=== PATIENT | female | born 2000 | race Caucasian/White ===

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

== ENCOUNTER 2024-09-01 10:44 | Outpatient (REF) | payer BC, MEDICAID, SELFPAY ==
[2024-09-01 11:27] LABS: MANUAL DIFF FLAG NO
[2024-09-01 11:32] LABS: Basophils Absolute Auto 0.1 X10*3/uL (0.0-0.2); Basophils Percent Auto 0.9 % (0-2); Eosinophils Absolute Auto 0.2 X10*3/uL (0.0-0.4); Eosinophils Percent Auto 2.9 % (0-4); Imm Gran Abs Auto 0.03 X10*3/uL (0.00-0.03); Imm Gran Pct Auto 0.5 % (0.0-0.4); Lymphocytes Absolute Auto 2.3 X10*3/uL (1.2-4.9); Lymphocytes Percent Auto 40.5 % (20-40); Mean Corpuscular HGB Conc 33.3 g/dl (31.0-35.0); Mean Corpuscular Hemoglobin 29.7 pg (27.0-33.0); Mean Platelet Volume 11.4 fL (9.4-12.3); Monocytes Absolute Auto 0.5 X10*3/uL (0.1-1.2); Monocytes Percent Auto 8.6 % (2-11); Neutrophils Absolute Auto 2.6 x10*3/uL (2.0-8.3); Neutrophils Percent Auto 46.6 % (45-73); Platelet Count 199 X10*3/uL (160-400); Red Blood Count 4.72 X10*6/uL (4.20-5.50); White Blood Count 5.6 X10*3/uL (4.8-10.8)
--- OUTSIDE RECORDS SUMMARY | 2024-09-01 12:16 | XMS_ITS | Encounter Summary ---
Author Organization [employer] Address [address] [facility] 7t [place] [address] Care Team Providers Care Chute Puller Name Role Phone Unavailable Primary Care Provider Unavailabl e Reason for Visit * Reason Comments Pre-visit Planning (Unable to reach for PVP screening, LVM) Encounter Details Date Type Department Care Team (Late st Contact Info) Description 08/20/2024 Patient Outreach [facility] [address] [place], [place] [phone] Cari Iqbal MD [address] [place], [place] [phone] Pre-visit Planning ((Unable to reach for PVP screening, LVM)) Social History Tobacco Use Types Packs/Day Years Used Date Smoking Tobacco: Never Assessed Comments Unknown Sex and Gender Information Value Date Recorded Sex Assigned at Female 09/01/2024 10:11 AM EST Legal Sex Female 4:13 PM EDT Gender Identity Female 09/01/2024 10:11 AM EST Sexual Orientation Choose not to disclose 2024 3:07 PM EST documented as of this encounter Progress Notes * Theresa Del Angel - 08/20/2024 1:11 PM EST CC Theresa placed successful outbound call to patient for pre-visit planning. Patient name and confirmed. Patient confirms appt date and time, and has transportation. Biggest concern for appointment at this time is none Patient advised to bring to appointment a photo id and insurance card. Appropriate screenings completed in anticipation of appointment. documented in this encounter Plan of Treatment Not on file documented as of this encounter Visit Diagnoses Not on filedocumented in this encounter
--- OUTSIDE RECORDS SUMMARY | 2024-09-01 12:16 | XMS_ITS | Clinical Summary ---
Author Organization [employer] Address [address] [facility] 7t [place] [address] Care Team Providers Care Physical Aerodynamicist Name Role Phone Cari Iqbal MD Primary Care Provider [phone] Allergies No known active allergies Medications No known medications Active Problems No known active problems Encounters Date Type Department Care Team Description 09/01/2024 9:45 AM EST Office Visit [address] [address] Cari Iqbal MD Routine screening for STI (sexually transmitted infection) (Primary Dx); Crampy pain associated with menses 09/01/[address] [address] Cari Iqbal MD insurance 09/01/2024 Travel 08/28/[address] [address] Cari Iqbal MD telephone call 08/20/2024 Patient Outreach [address] [address] Cari Iqbal MD Pre-visit Planning ((Unable to reach for PVP screening, LVM)) 07/16/[address] [address] Cari Iqbal MD New Patient from Last 3 Months Social History Tobacco Use Types Packs/Day Years Used Date Smoking Tobacco: Never Passive Smoke Exposure: Never Smokeless Tobacco: Never Alcohol Use Standard Drinks/Week Comments Not Currently 0 (1 standard drink = 0.6 oz pur e alcohol) occasionally Housing Stability Answer Date Recorded What is your housing situation today? I have rickey vaughn 09/01/[address] you li ve. Do you have problems with any of the following? None of the above 09/01/2024 Food Insecurity Answer Date Recorded Within the past 12 months, y ou worried that your food would run out before you got money to buy more: Never True 09/01/2024 Within the past 12 months,th e food you bought just didn't last and you didn't have enough money to get more: Never True Transportation Answer Date Recorded In the past 12 months, has l ack of transportation kept you from medical appts, meetings, work or from getting things needed for daily living? No 09/01/2024 Utilities Answer Date Recorded In the past 12 months, has t he [employer], gas, oil or water company threatened to shut off services in your home? No 09/01/2024 Internet Access Answer Date Recorded Internet Access Q1 Yes 09/01/2024 Internet Access Q2 Not on file 09/01/2024 Comments Unknown Sex and Gender Information Value Date Recorded Sex Assigned at Female 09/01/2024 10:11 AM EST Legal Sex Female 4:13 PM EDT Gender Identity Female 09/01/2024 10:11 AM EST Sexual Orientation Choose not to disclose 2024 3:07 PM EST Last Filed Vital Signs Vital Sign Reading Time Taken Comments Blood Pressure 144/69 09/01/2024 9:52 AM EST Pulse 72 09/01/2024 9:52 AM EST Temperature 36.5 ??C (97.7 ??F) 09/01/2024 9:52 AM ES T Respiratory Rate 17 09/01/2024 9:52 AM EST Oxygen Saturation - - Inhaled Oxygen Concentration - - Weight 59.6 kg (131 lb 6.4 oz) 09/01/2024 9:52 A M EST Height 157.5 cm (5' 2 ) 09/01/2024 9:52 AM EST Body Mass Index 24.03 09/01/2024 9:52 AM EST Plan of Treatment Health Maintenance Due Date Last Done Comments Chlamydia and Gonorrhea Screening 2001 Depression Screening 2001 HIV Screening 2001 Alcohol/Substance Use Screening 2013 Family Planning (PISQ) 2016 Hepatitis C Screening 2019 Pap Smear 2022 DTaP/Tdap/Td Vaccines (7 - Td or Tdap) 09/25/2022 09/25/2012, 08/30/2005, 11/12/2002, Additional history exists COVID-19 Vaccine ( season) 2024 10/23/2021, 03/29/2021, 03/08/2021 Influenza Vaccine (#1) 2024 9, 07/10/2017, 12/14/2013, Additional history exists SDOH Screening 09/01/2025 09/01/2024 Tobacco Screening 09/01/2025 09/01/2024 Zoster Vaccines (1 of 2) 2051 RSV Patients and Patients Aged 60 years or older (1 - 1-dose 75+ series) 2076 Pneumococcal Vaccine: Pediatrics (0 to 5 Years) and At-Risk Patients (6 to 64 Years) Aged Out 2001, 2001, 2001 No longer eligible based on patient's age to complete this topic Hepatitis B Vaccines Completed 02/16/2002, 2001, 2001 HIB Vaccines Completed 08/13/2002, 01/2002, 2001, Additional history exists IPV Vaccines Completed 08/30/2005, 01/2002, 2001, Additional history exists HPV Vaccines Completed 12/14/2013, 11/11, 09/25/2012 Hepatitis A Vaccines Completed 01/13/2015, 12/15/19 14 Meningococcal Vaccine Completed 07/10/2017, 013 RSV under 20 months Aged Out No longe r eligible based on patient's age to complete this topic Rotavirus Vaccines Aged Out No longer eligible based on patient's age to complete this topic Procedures Procedure Name Priority Date/Time Associated Diagnosis Comments CBC WITH AUTO DIFFERENTIAL Routine 09/01/2024 10:46 AM EST Crampy pain associated with menses from Last 3 Months Results * (ABNORMAL) CBC auto differential (09/01/2024 10:46 AM EST) White Blood Count 5.6 4.8 - 10.8 X10*3/uL [facility] Red Blood Count 4.72 4.20 - 5.50 X10*6/uL [facility] Hemoglobin 14.0 12.0 - 16.0 g/dl [facility] Hematocrit 42.0 37.0 - 47.0 % [facility] Mean Corpuscular Volume 89.0 80.0 - 98.0 fL [facility] Mean Corpuscular Hemoglobin 29.7 27.0 - 33.0 pg [facility] Mean Corpuscular HGB Conc 33.3 31.0 - 35.0 g/dl [facility] Red Cell Distribution Width 12.0 11.0 - 16.0 % [facility] Platelet Count 199 160 - 400 X10*3/uL [facility] Mean Platelet Volume 11.4 9.4 - 12.3 fL [facility] Neutrophils Percent Auto 46.6 45 - 73 % [facility] Imm Gran Pct Auto 0.5(H) 0.0 - 0.4 % [facility] Lymphocytes Percent Auto 40.5(H) 20 - 40 % [facility] Monocytes Percent Auto 8.6 2 - 11 % [facility] Eosinophils Percent Auto 2.9 0 - 4 % [facility] Basophils Percent Auto 0.9 0 - 2 % [facility] NRBC Pct Auto 0.0 0.0 - 0.2 /100WBC [facility] Neutrophils Absolute Auto 2.6 2.0 - 8.3 x10*3/uL [facility] Imm Gran Abs Auto 0.03 0.00 - 0.03 X10*3/uL [facility] Lymphocytes Absolute Auto 2.3 1.2 - 4.9 X10*3/uL [facility] Monocytes Absolute Auto 0.5 0.1 - 1.2 X10*3/uL [facility] Eosinophils Absolute Auto 0.2 0.0 - 0.4 X10*3/uL [facility] Basophils Absolute Auto 0.1 0.0 - 0.2 X10*3/uL [facility] NRBC Abs Auto 0.000 0.0 - 0.012 X10*3/uL [facility] Blood Venous blood specimen / Unknown 09/01/2024 10:46 AM EST 09/01/2024 11:17 AM EST us Cari Iqbal MD LAB BLOOD ORDERABLES Final Res ult [facility] [address] [place] [address] [phone] from Last 3 Months Insurance [facility] Care Teams Physical Aerodynamicist Relationship Specialty Start Date End Date Cari Iqbal MD [address] [place] [phone] PCP - General Family Medicine 09/01/24
--- OUTSIDE RECORDS SUMMARY | 2024-09-01 12:16 | XMS_ITS | Encounter Summary ---
Author Organization [employer] Address [address] [facility] [address] 7[address] [place] [address] Care Team Providers Care Cigar Machine Feeder Name Role Phone Cari Iqbal MD Primary Care Provider [phone] Reason for Visit * Reason Comments [facility] - Office Visit New Patient Encounter Details Date Type Department Care Team (Late st Contact Info) Description 09/01/2024 9:45 AM EST Office Visit [facility] [address] [place], [place] [phone] Cari Iqbal MD [address] [place], [place] [phone] Routine screening for STI (sexually transmitted infection) (Primary Dx); Crampy pain associated with menses Social History Tobacco Use Types Packs/Day Years Used Date Smoking Tobacco: Never Passive Smoke Exposure: Never Smokeless Tobacco: Never Alcohol Use Standard Drinks/Week Comments Not Currently 0 (1 standard drink = 0.6 oz pur e alcohol) occasionally Housing Stability Answer Date Recorded What is your housing situation today? I have rickeyrocio vaughn 09/01/[address] you [...] the past 12 months, has t he electric, gas, oil or water company threatened to [...] PM EST documented as of this encounter Last Filed Vital Signs Vital Sign Reading [...] Mass Index 24.03 09/01/2024 9:52 AM EST documented in this encounter Plan of Treatment Scheduled Orders Name Type Priority Associated Diagnoses Orde r Schedule Chlamydia/N. Gonorrhoeae RNA, TMA, Urogenitial Microbiology Routine Routine screening for STI (sexually transmitted infection) Expected: 09/01/2024 (Approximate), Expires: 09/01/2025 HIV-1/2 Antigen and Antibodies, Fourth Generation, with Reflexes Lab Routine Routine screening for STI (sexually transmitted infection) Expected: 09/01/2024 (Approximate), Expires: 09/01/2025 Hepatitis C Antibody with Reflex to HCV, RNA, Quantitative, Real-Time PCR Lab Routine Routine screening for STI (sexually transmitted infection) Expected: 09/01/2024, Expires: 09/01/2025 RPR (Monitor) with Reflex to??Titer Lab Routine Routine screening for STI (sexually transmitted infection) Expected: 09/01/2024, Expires: 09/01/2025 Comprehensive Metabolic Panel Lab Routine Crampy pain associated with menses Expected: 09/01/2024 (Approximate), Expires: 09/01/2025 TSH W/Reflex to FT4 Lab Routine Crampy pain associated with menses Expected: 09/01/2024 (Approximate), Expires: 09/01/2025 documented as of this encounter Procedures Procedure Name Priority Date/Time Associated Diagnosis Comments CBC WITH AUTO DIFFERENTIAL Routine 09/01/2024 10:46 AM EST Crampy pain associated with menses documented in this encounter Results * (ABNORMAL) CBC auto differential (09/01/2024 10:46 AM EST) White Blood Count 5.6 4.8 - 10.8 X10*3/uL [facility] Red Blood Count 4.72 4.20 - 5.50 X10*6/uL [facility] Hemoglobin 14.0 12.0 - 16.0 g/dl [facility] Hematocrit 42.0 37.0 - 47.0 % [facility] Mean Corpuscular Volume 89.0 80.0 - 98.0 fL [facility] Mean Corpuscular Hemoglobin 29.7 27.0 - 33.0 pg [facility] Mean Corpuscular HGB Conc 33.3 31.0 - 35.0 g/dl [facility] Red Cell Distribution Width 12.0 11.0 - 16.0 % [facility] Platelet Count 199 160 - 400 X10*3/uL [facility] Mean Platelet Volume 11.4 9.4 - 12.3 fL [facility] Neutrophils Percent Auto 46.6 45 - 73 % [facility] Imm Gran Pct Auto 0.5(H) 0.0 - 0.4 % [facility] Lymphocytes Percent Auto 40.5(H) 20 - 40 % [facility] Monocytes Percent Auto 8.6 2 - 11 % [facility] Eosinophils Percent Auto 2.9 0 - 4 % [facility] Basophils Percent Auto 0.9 0 - 2 % [facility] NRBC Pct Auto 0.0 0.0 - 0.2 /100WBC [facility] Neutrophils Absolute Auto 2.6 2.0 - 8.3 x10*3/uL [facility] Imm Gran Abs Auto 0.03 0.00 - 0.03 X10*3/uL [facility] Lymphocytes Absolute Auto 2.3 1.2 - 4.9 X10*3/uL [facility] Monocytes Absolute Auto 0.5 0.1 - 1.2 X10*3/uL [facility] Eosinophils Absolute Auto 0.2 0.0 - 0.4 X10*3/uL [facility] Basophils Absolute Auto 0.1 0.0 - 0.2 X10*3/uL [facility] NRBC Abs Auto 0.000 0.0 - 0.012 X10*3/uL [facility] Blood Venous blood specimen / Unknown 09/01/2024 10:46 AM EST 09/01/2024 11:17 AM EST us Cari Iqbal MD LAB BLOOD ORDERABLES Final Res ult [facility] [address] [place] [address] [phone] documented in this encounter Visit Diagnoses Diagnosis Routine screening for STI (sexually transmitted infection)- Primary Screening examination for venereal disease Crampy pain associated with menses documented in this encounter Care Teams Cigar Machine Feeder Relationship Specialty Start Date End Date Cari Iqbal MD [address] [place] [phone] PCP - General Family Medicine 09/01/24 documented as of this encounter
--- OUTSIDE RECORDS SUMMARY | 2024-09-01 12:16 | XMS_ITS | Encounter Summary ---
Author Organization [employer] Address [address] [facility] 7t [place] [address] Care Team Providers Care Land Surveying Survey Worker Name Role Phone Unavailable Primary Care Provider Unavailabl e Reason for Visit * Reason Onset Date Comments telephone call 08/28/2024 Encounter Details Date Type Department Care Team (Late st Contact Info) Description 08/28/2024 Telephone [facility] [address] [place] [address] Cari Iqbal MD [address] [place] [address] telephone call Social History Tobacco Use Types Packs/Day Years Used Date Smoking Tobacco: Never Assessed Comments Unknown Sex and Gender Information Value Date Recorded Sex Assigned at Female 09/01/2024 10:11 AM EST Legal Sex Female 4:13 PM EDT Gender Identity Female 09/01/2024 10:11 AM EST Sexual Orientation Choose not to disclose 2024 3:07 PM EST documented as of this encounter Miscellaneous Notes * Telephone Encounter - Concha Mendoza - 08/28/2024 3:17 PM EST Fd called 08/28/2024 @ 3:19 pm to let him know that his insurance is assigned to PCP other. I left detailed voicemail telling him that he needs to call [employer] and change it to Dr. Iqbal in order for this to not be an issue when it comes to billing or referral purposes. documented in this encounter Plan of Treatment Not on file documented as of this encounter Visit Diagnoses Not on filedocumented in this encounter
--- OUTSIDE RECORDS SUMMARY | 2024-09-01 12:16 | XMS_ITS | Encounter Summary ---
Author Organization [employer] Address [address] [facility] [address] 7[address] [place] [address] Care Team Providers Care Caustic Mixer Name Role Phone Cari Iqbal MD Primary Care Provider [phone] Encounter Details Date Type Department Care Team (Latest Contact Info) Description 09/01/2024 Travel Social History Tobacco Use Types Packs/Day Years [...] t he electric, gas, oil or water [employer] threatened to shut off services in your [...] PM EST documented as of this encounter Plan of Treatment Not on file documented as of this encounter Visit Diagnoses Not on filedocumented in this encounter Care Teams Caustic Mixer Relationship Specialty Start Date End Date Cari Iqbal MD [address] [place] [address] PCP - General Family Medicine 09/01/24 documented as of this encounter
--- OUTSIDE RECORDS SUMMARY | 2024-09-01 12:16 | XMS_ITS | Encounter Summary ---
Author Organization [employer] Address [address] [facility] 7[address] [place] [address] Care Team Providers Care Equipment Maintenance Superintendent Name Role Phone Cari Iqbal MD Primary Care Provider [phone] Reason for Visit * Reason Onset Date Comments New Patient 07/16/2024 Encounter Details Date Type Department Care Team (Late st Contact Info) Description 07/16/[address] [facility] MED[facility]INE [address] [place], [place] [phone] Cari Iqbal MD [address] [place], [place] [phone] New Patient Social History Tobacco Use Types Packs/Day Years [...] encounter Miscellaneous Notes * Telephone Encounter - Janeth Martinez - 07/16/2024 3:00 PM EST TC placed to patient for scheduling of new patient visit. Agreed to 09/01/23 with [facility] Medical Conditions: Last seen 5+ years at [facility] Apptmnt reminder and release form sent via mail . documented in this encounter Plan of Treatment Not on file documented as of this encounter Visit Diagnoses Not on filedocumented in this encounter Care Teams Equipment Maintenance Superintendent Relationship Specialty Start Date End Date Cari Iqbal MD [address] [place], [place] [phone] PCP - General Family Medicine 09/01/24 documented as of this encounter
--- OUTSIDE RECORDS SUMMARY | 2024-09-01 12:16 | XMS_ITS | Encounter Summary ---
Author Organization [employer] Address [address] [facility] [address] 7[address] [place] [address] Care Team Providers Care Quality Assurance Intern Name Role Phone Cari Iqbal MD Primary Care Provider [phone] Reason for Visit * Reason Onset Date Comments insurance 09/01/2024 Encounter Details Date Type Department Care Team (Late st Contact Info) Description 09/01/2024 Telephone [facility] MEDICINE [address] [place], [place] [phone] Cari Iqbal MD [address] [place], [place] [phone] insurance Social History Tobacco Use Types Packs/Day Years [...] encounter Miscellaneous Notes * Telephone Encounter - Mona Chaney - 09/01/2024 9:44 AM EST Pt walked in for appt on 09/01/24 pt pcp for [facility] is other pcp, I informed pt they tried calling her to let her know pcp is other and she would have to call her insurance to switch it to ,pt said she called this morning and they were going to switch it , I informed pt she can go to insurance enrollment after appt to make sure they are going to switch it . documented in this encounter Plan of Treatment Not on file documented as of this encounter Visit Diagnoses Not on filedocumented in this encounter Care Teams Quality Assurance Intern Relationship Specialty Start Date End Date Cari Iqbal MD [address] [place] [phone] PCP - General Family Medicine 09/01/24 documented as of this encounter
--- OUTSIDE RECORDS SUMMARY | 2024-09-01 12:17 | XMS_ITS | Encounter Summary ---
Author Organization [facility] Address [address] [place] [phone] Phone Care Team Providers Care Ultrasonographer Name Role Phone Provider, Blayne BRIGHT Primary Care Provider [phone] Encounter Details Date Type Department Care Team (Late st Contact Info) Description 12/05/2012 Documentation [facility] [place] [address] [place] [address] Family Medicine, Physician [address] [place], [place] [phone] Social History Tobacco Use Types Packs/Day Years Used Date Smoking Tobacco: Never Assessed Comments Unknown Sex and Gender Information Value Date Recorded Sex Assigned at Not on file Legal Sex Female 4:57 PM EDT Gender Identity Not on file Sexual Orientation Not on file documented as of this encounter Plan of Treatment Not on file documented as of this encounter Visit Diagnoses Not on filedocumented in this encounter Care Teams Ultrasonographer Relationship Specialty Start Date End Date Provider, MD Blayne [address] [place] [address] PCP - General Pediatrics 03/20/21 11/18/22 documented as of this encounter
--- OUTSIDE RECORDS SUMMARY | 2024-09-01 12:17 | XMS_ITS | Encounter Summary ---
Author Organization [facility] Address [address] [place] [phone] Phone Care Team Providers Care Lock Master Name Role Phone Provider, Blayne BRIGHT Primary Care Provider [phone] Encounter Details Date Type Department Care Team (Late st Contact Info) Description 01/14/2015 Documentation [facility] [place] [address] [place] [address] Family Medicine, Physician [address] [phone] Social History Tobacco Use Types Packs/Day Years [...] on filedocumented in this encounter Care Teams Lock Master Relationship Specialty Start Date End Date Provider, MD Blayne [address] [place] [address] PCP - General Pediatrics 03/20/21 11/18/22 documented as of this encounter
--- OUTSIDE RECORDS SUMMARY | 2024-09-01 12:17 | XMS_ITS | Encounter Summary ---
Author Organization [facility] Address [address] [place] [phone] Phone Care Team Providers Care Patent Searcher Name Role Phone Provider, Blayne BRIGHT Primary Care Provider [phone] Encounter Details Date Type Department Care Team (Late st Contact Info) Description 01/20/2016 Documentation [facility] [place] Medicine [address] [place] [address] Family Medicine, Physician [address] [place], [place] [phone] Social History Tobacco Use Types Packs/Day Years Used Date Smoking Tobacco: Never Comments:Never smoker Comments Unknown Sex and Gender Information Value Date Recorded Sex Assigned at Not on file Legal Sex Female 4:57 PM EDT Gender Identity Not on file Sexual Orientation Not on file documented as of this encounter Plan of Treatment Not on file documented as of this encounter Visit Diagnoses Not on filedocumented in this encounter Care Teams Patent Searcher Relationship Specialty Start Date End Date Provider, MD Blayne [address] [place] [address] PCP - General Pediatrics 03/20/21 11/18/22 documented as of this encounter
--- OUTSIDE RECORDS SUMMARY | 2024-09-01 12:17 | XMS_ITS | Encounter Summary ---
Author Organization [facility] Address [address] [place] [phone] Phone Care Team Providers Care Lokie Driver Name Role Phone Provider, Blayne BRIGHT Primary Care Provider [phone] Encounter Details Date Type Department Care Team (Late st Contact Info) Description 01/14/2015 Documentation [facility] [place] [address] [place] [address] Family Medicine, Physician [address] [place], [place] [phone] Social History Tobacco Use Types Packs/Day Years [...] on filedocumented in this encounter Care Teams Lokie Driver Relationship Specialty Start Date End Date Provider, MD Blayne [address] [place] [address] PCP - General Pediatrics 03/20/21 11/18/22 documented as of this encounter
--- OUTSIDE RECORDS SUMMARY | 2024-09-01 12:17 | XMS_ITS | Encounter Summary ---
Author Organization [facility] Address [address] [place] [phone] Phone Care Team Providers Care Human Resource Assistant Name Role Phone Provider, Blayne BRIGHT Primary Care Provider [phone] Encounter Details Date Type Department Care Team (Late st Contact Info) Description 09/26/2012 Documentation [facility] [place] Medicine [address] [place] [address] Family Medicine, Physician [address] [place], [place] [phone] Social History Tobacco Use Types Packs/Day Years [...] on filedocumented in this encounter Care Teams Human Resource Assistant Relationship Specialty Start Date End Date Provider, MD Blayne [address] [place] [address] PCP - General Pediatrics 03/20/21 11/18/22 documented as of this encounter
--- OUTSIDE RECORDS SUMMARY | 2024-09-01 12:17 | XMS_ITS | Encounter Summary ---
Author Organization [facility] Address [address] [place] [address] Phone Care Team Providers Care Loss Prevention And Safety Manager Name Role Phone Provider, Blayne BRIGHT Primary Care Provider [phone] Encounter Details Date Type Department Care Team (Late st Contact Info) Description 01/20/2016 Documentation [facility] Family Medicine [address] [place] [address] Family Medicine, Physician [address] [place], [place] [phone] Social History Tobacco Use Types Packs/Day Years [...] on filedocumented in this encounter Care Teams Loss Prevention And Safety Manager Relationship Specialty Start Date End Date Provider, MD Blayne [address] [place] [address] PCP - General Pediatrics 03/20/21 11/18/22 documented as of this encounter
--- OUTSIDE RECORDS SUMMARY | 2024-09-01 12:17 | XMS_ITS | Encounter Summary ---
Author Organization [facility] Address [address] [place], [place] [id number] Phone Care Team Providers Care Spinning Doffer Name Role Phone Provider, Blayne BRIGHT Primary Care Provider [phone] Encounter Details Date Type Department Care Team (Late st Contact Info) Description 03/28/2017 Conversion Encounter [facility] [address] [place], [place] [phone] Social History Tobacco Use Types Packs/Day Years [...] on filedocumented in this encounter Care Teams Spinning Doffer Relationship Specialty Start Date End Date Provider, MD Blayne [address] [place] [phone] PCP - General Pediatrics 03/20/21 11/18/22 documented as of this encounter
--- OUTSIDE RECORDS SUMMARY | 2024-09-01 12:17 | XMS_ITS | Encounter Summary ---
Author Organization [facility] Address [address] [place] [address] Phone Care Team Providers Care Office Support Clerk Name Role Phone Provider, Blayne BRIGHT Primary Care Provider Encounter Details Date Type Department Care Team (Late st Contact Info) Description 02/26/2011 Documentation [facility] [place] Family Medicine [address] [place] [address] Family Medicine, Physician [address], [place] [phone] Social History Tobacco Use Types Packs/Day Years [...] on filedocumented in this encounter Care Teams Office Support Clerk Relationship Specialty Start Date End Date Provider, MD Blayne [address] [place] [address] PCP - General Pediatrics 03/20/21 11/18/22 documented as of this encounter
--- OUTSIDE RECORDS SUMMARY | 2024-09-01 12:17 | XMS_ITS | Clinical Summary ---
Author Organization [facility] Address [address] [place] [address] Phone Care Team Providers Care Terminal Supervisor Name Role Phone Unavailable Primary Care Provider Unavailabl e Allergies No known active allergies Medications No known medications Active Problems Problem Noted Date Diagnosed Date Dysmenorrhea 08/14/2018 Immunizations Name Administration Dates Next Due DTaP 5 08/30/2005, 3,2001,10/13,2001 H1N1 05/26/2009 HPV, Quadrivalent 12/14/2013,12/04/2012,09/25/19 13 Hep A, ped/adol 01/13/2015,12/14/2013 Hep B, ped/adol 02/16/2002,2001,2001 Hib (PRP-T) 08/13/2002, 2,2001,07/08 IPV 08/30/2005, 2,2001,07/08 Influenza Split 07/17/2010 Influenza, injectable, quadr ivalent, preservative free 08/14/2018,07/10/2017,12/14/2013 Influenza, injectable, trivalent 05/26/2009 Influenza, intranasal, trivalent 09/25/2012 MMR 08/30/2005,05/11/2002 Meningococcal Conj (Menactra) MCV4P 07/10/2017,0 09/25/2012 Pneumococcal Conjugate 2001,2001, Tdap 09/25/2012 Varicella 11/27/2007,05/11/2002 Family History Medical History Relation Name Comments Diverticulitis Mother Courtney Hypertension Mother Courtney Breast cancer Mother's Sister Relation Name Status Comments Brother Harrison Alive Brother: Alive and well, *Heart Disease Father Ashlie Alive Father: Alive a nd well Mother Courtney Alive Mother: Alive a nd well Mother's Sister Other Family history of *Dental caries, Family history of *Heart Disease, Family history of *Sudden /[place] under 55, No family history of Developmental dislocation of hip, No family history of ADD/ADHD, Family history of Diabetes mellitus, Family history of Sudden /[place] under 55, Family history of Obesity, No family history of Migraines, No family history of Asthma, Family history of *Thrombophilia, No family history of Deafness, Family history of Hyperlipidemia, No family history of Strabismus, No family history of Seizure disorder, Family history of Cancer, Family history of *CVA/Stroke Social History Tobacco Use Types Packs/Day Years Used Date Smoking Tobacco: Never Smokeless Tobacco: Never Comments:Never smoker Alcohol Use Standard Drinks/Week Comments No 0 (1 standard drink = 0.6 oz pur e alcohol) Hunger/Food Answer Date Recorded No 05/07/2020 Stable Housing Answer Date Recorded No 05/07/2020 Transportation Concerns Answer Date Rec orded No 05/07/2020 Hazards in Home Answer Date Recorded No 06/25/2020 Financing Utilities Answer Date Recorde d No 06/25/2020 Safety at Home Answer Date Recorded No 06/25/2020 Outside Support Answer Date Recorded No 06/25/2020 Understanding Health Concerns Answer Da te Recorded No 06/25/2020 Financing Health Concerns Answer Date R ecorded No 06/25/2020 Missing School or Work Answer Date Mich rded No 06/25/2020 Comments No Sex and Gender Information Value Date Recorded Sex Assigned at Not on file Legal Sex Female 4:57 PM EDT Gender Identity Not on file Sexual Orientation Not on file Last Filed Vital Signs Vital Sign Reading Time Taken Comments Blood Pressure 120/71 08/14/2018 1:46 PM EST Pulse 74 08/14/2018 1:46 PM EST Temperature 36.7 ??C (98 ??F) 12/28/2013 12:00 AM EDT Respiratory Rate - - Oxygen Saturation - - Inhaled Oxygen Concentration - - Weight 57.6 kg (127 lb) 08/14/2018 1:46 PM EST Height 154.3 cm (5' 0.75 ) 08/14/2018 1:46 PM ES T Body Mass Index 24.19 08/14/2018 1:46 PM EST Plan of Treatment Health Maintenance Due Date Last Done Comments Men B Vaccine (1 of 2 - Standard) 2017 DTaP,Tdap,and Td Vaccines (7 - Td or Tdap) 09/25/2022 09/25/2012, 08/30/2005, 11/12/2002, Additional history exists Influenza Vaccines (#1) 2024 08/14/19 19, 07/10/2017, 12/14/2013, Additional history exists COVID-19 Vaccine ( season) 2024 03/29/2021, 03/08/2021 Pneumococcal Vaccine Aged Out 2001, 2001, 2001 No longer eligible based on patient's age to complete this topic Hepatitis B Vaccines Completed 02/16/2002, 2001, 2001 HIB Vaccines Completed 08/13/2002, 0 01/2002, 2001, Additional history exists IPV Vaccines Completed 08/30/2005, 01/2002, 2001, Additional history exists MMR Vaccines Completed 08/30/2005, 05/11/2002 Varicella Vaccines Completed 11/27/2007, 05/11/2002 HPV Vaccines Completed 12/14/2013, 11/11, 09/25/2012 Hepatitis A Vaccines Completed 01/13/2015, 12/15/19 14 Meningococcal Vaccine Completed 07/10/2017, 013 Procedures * Due to [place] [employer] law, this organization might not be sharing sensitive test results. Procedure Name Priority Date/Time Associated Diagnosis Comments CHLAMYDIA AND GONORRHEA, AMPLIFIED Routine 08/14/2018 2:04 PM EST Encounter for well child visit at 18 years of age from Last 3 Months or Most Recently Relevant to Health Maintenance Results * Due to [place] [employer] law, this organization might not be sharing sensitive test results. * Chlamydia and Gonorrhoea, Amplified (08/14/2018 2:04 PM EST) Chlamydia Trachomatis, DNA Probe NEGATIVE (NEG) [facility] Comment: No Chlamydia Trachomatis RNA detected in this patient's sample ? (REFERENCE RANGE/NORMAL VALUE: NOT DETECTED) ? Note: This test uses menhaden fishing crew member- mediated amplification method to detect rRNA from C. Trachomatis URINE GC AMP PROBE NEGATIVE (NEG) [facility] Comment: No Neisseria Gonorrhoeae RNA detected in this patient's sample ? (REFERENCE RANGE/NORMAL VALUE: NOT DETECTED) ? NOTE: This test uses menhaden fishing crew member-mediated amplification method to detect rRNA from N.Gonorrhoeae. A negative result does not preclude infection. In the case of a negative urine result, testing of an endocervical(female) or urethral (male) specimen is recommended if there is high clinical suspicion of infection. Due to very high sensitivity of Nucleic Acid Amplification Test, false positive results may occur. Therefore, specimen handling is extremely important. In patients in whom the disease is unlikely, additional sample for testing should be considered after an initial positive result. The performance characteristics of this test have not been evaluated in children. The Aptima Combo2 assay is not intended for the evaluation of suspected sexual abuse or for other medico-legal indications. The ordering provider should assess if the patient had consensual sex without risk of sexual abuse. Consult the [facility] if needed. Contact phone number . Therapeutic failure or success cannot be determined with the Aptima Combo2 assay since nucleic acid may persist following appropriate antimicrobial therapy. The Centers for Disease Control and Prevention (CDC) recommends confirmatory retesting using culture or a different nucleic acid amplification test when positive results occur, if indicated. Testing performed or reported by [facility], a Service of [facility], [address] [place] [address] [facility] [id number] Mitzi Phan MD, Pension Agent Urine 08/14/2018 2:04 PM EST 08/14/2018 9:13 PM EST us Enzo Mccain MD LAB MICROBIOLOGY - GENERAL ORD ERABLES Final Result [facility] from Last 3 Months or Most Recently Relevant to Health Maintenance Insurance [facility] NON PCC
--- OUTSIDE RECORDS SUMMARY | 2024-09-01 12:17 | XMS_ITS | Encounter Summary ---
Author Organization [facility] Address [address] [place] [address] Phone Care Team Providers Care Automotive Paint Technician Name Role Phone Provider, Blayne BRIGHT Primary Care Provider [phone] Encounter Details Date Type Department Care Team (Late st Contact Info) Description 12/15/2013 Documentation [facility] [place] Family Medicine [address] [place] [address] Family Medicine, Physician [address] [place], [place] [phone] Social History Tobacco Use Types Packs/Day Years [...] on filedocumented in this encounter Care Teams Automotive Paint Technician Relationship Specialty Start Date End Date Provider, MD Blayne [address] [place] [address] PCP - General Pediatrics 03/20/21 11/18/22 documented as of this encounter
--- OUTSIDE RECORDS SUMMARY | 2024-09-01 12:17 | XMS_ITS | Encounter Summary ---
Author Organization [facility] Address [address] [place] [address] Phone Care Team Providers Care Electric Meter Tester Name Role Phone Provider, Blayne BRIGHT Primary Care Provider Encounter Details Date Type Department Care Team (Late st Contact Info) Description 09/26/2012 Documentation [facility] Family Medicine [address] [place] [address] Family Medicine, Physician [address], [place] [phone] Social History Tobacco Use Types Packs/Day Years [...] on filedocumented in this encounter Care Teams Electric Meter Tester Relationship Specialty Start Date End Date Provider, MD Blayne [address] [place] [address] PCP - General Pediatrics 03/20/21 11/18/22 documented as of this encounter
--- OUTSIDE RECORDS SUMMARY | 2024-09-01 12:17 | XMS_ITS | Encounter Summary ---
Author Organization [facility] Address [address] [place] [address] Phone Care Team Providers Care Face And Fill Packer Name Role Phone Provider, Blayne BRIGHT Primary Care Provider [phone] Encounter Details Date Type Department Care Team (Late st Contact Info) Description 09/26/2012 Documentation [facility] [place] [address] [place] [address] Family Medicine, Physician [address] [place], [place] [phone] Social History Tobacco Use Types Packs/Day Years [...] on filedocumented in this encounter Care Teams Face And Fill Packer Relationship Specialty Start Date End Date Provider, MD Blayne [address] [place] [address] PCP - General Pediatrics 03/20/21 11/18/22 documented as of this encounter
--- OUTSIDE RECORDS SUMMARY | 2024-09-01 12:17 | XMS_ITS | Encounter Summary ---
Author Organization [facility] Address [address] [place] [address] Phone Care Team Providers Care Medicare Compliance Auditor Name Role Phone Provider, Blayne BRIGHT Primary Care Provider [phone] Encounter Details Date Type Department Care Team (Late st Contact Info) Description 01/14/2015 Documentation [facility] [place] Family Medicine [address] [place] [address] Family Medicine, Physician [address], [place] [phone] Social History Tobacco Use Types Packs/Day Years [...] on filedocumented in this encounter Care Teams Medicare Compliance Auditor Relationship Specialty Start Date End Date Provider, MD Blayne [address] [place] [address] PCP - General Pediatrics 03/20/21 11/18/22 documented as of this encounter
--- OUTSIDE RECORDS SUMMARY | 2024-09-01 12:17 | XMS_ITS | Encounter Summary ---
Author Organization [facility] Address [address] [place] [address] Phone Care Team Providers Care School Health Assistant Name Role Phone Provider, Blayne BRIGHT Primary Care Provider [phone] Encounter Details Date Type Department Care Team (Late st Contact Info) Description 12/05/2012 Documentation [facility] [place] Medicine [address] [place] [address] Family Medicine, Physician [address], [place] [phone] Social History Tobacco Use Types Packs/Day Years [...] on filedocumented in this encounter Care Teams School Health Assistant Relationship Specialty Start Date End Date Provider, MD Blayne [address] [place] [address] PCP - General Pediatrics 03/20/21 11/18/22 documented as of this encounter
--- OUTSIDE RECORDS SUMMARY | 2024-09-01 12:17 | XMS_ITS | Encounter Summary ---
Author Organization [facility] Address [address] [place] [address] Phone Care Team Providers Care Marshmallow Machine Worker Name Role Phone Provider, Blayne BRIGHT Primary Care Provider Encounter Details Date Type Department Care Team (Late st Contact Info) Description 12/15/2013 Documentation [facility] [place] Family Medicine [address] [place] [address] Family Medicine, Physician [address] [place], [place] [phone] Social History Tobacco Use Types Packs/Day Years [...] on filedocumented in this encounter Care Teams Marshmallow Machine Worker Relationship Specialty Start Date End Date Provider, MD Blayne [address] [place] [address] PCP - General Pediatrics 03/20/21 11/18/22 documented as of this encounter
--- OUTSIDE RECORDS SUMMARY | 2024-09-01 12:17 | XMS_ITS | Encounter Summary ---
Author Organization [facility] Address [address] [place] [address] Phone Care Team Providers Care Missionary Coordinator Name Role Phone Provider, Blayne BRIGHT Primary Care Provider [phone] Encounter Details Date Type Department Care Team (Late st Contact Info) Description 09/26/[address] [facility] [place] [address] [place] [address] Family Medicine, Physician [address], [place] [phone] Social History Tobacco Use Types Packs/Day Years [...] on filedocumented in this encounter Care Teams Missionary Coordinator Relationship Specialty Start Date End Date Provider, MD Blayne [address] [place] [address] PCP - General Pediatrics 03/20/21 11/18/22 documented as of this encounter
--- OUTSIDE RECORDS SUMMARY | 2024-09-01 12:17 | XMS_ITS | Encounter Summary ---
Author Organization [facility] Address [address] [place] [address] Phone Care Team Providers Care Beer Runner Name Role Phone Provider, Blayne BRIGHT Primary Care Provider [phone] Encounter Details Date Type Department Care Team (Late st Contact Info) Description 04/11/2011 Documentation [facility] [place] Family Medicine [address] [place] [address] Family Medicine, Physician [address], [place] [phone] Social History Tobacco Use Types Packs/Day Years [...] on filedocumented in this encounter Care Teams Beer Runner Relationship Specialty Start Date End Date Provider, MD Blayne [address] [place] [address] PCP - General Pediatrics 03/20/21 11/18/22 documented as of this encounter
[2024-09-01 12:26] LABS: Alanine Aminotransferase 30 U/L (0-31); Albumin Level 4.3 g/dL (3.5-5.0); Alkaline Phosphatase 69 U/L (39-117); Anion Gap 9 (12-20); Aspartate Amino Transferase 24 U/L (5-31); Bilirubin Total 0.6 mg/dL (0.0-1.0); Blood Urea Nitrogen 18 mg/dL (9-16); Calcium 9.1 mg/dL (8.4-10.2); Carbon Dioxide 29 mmol/L (22-29); Chloride 105 mmol/L (96-108); Estimated Glomerular Filt Rate > 60; Glucose Random 74 mg/dL (60-115); Potassium 4.1 mmol/L (3.3-5.1); Sodium 139 mmol/L (135-145); Total Protein 7.6 g/dL (6.5-8.0)
[2024-09-01 12:42] LABS: HIV AB/AG Nonreactive (Nonreactive); HIV Num 1 0.06 S/CO (0.00-0.99); TSH reflex Free T4 1.86 uIU/mL (0.32-4.0); ~HepC Num1 1.43 S/CO (0.00-0.79); ~Hepatitis C Antibody Reactive (Nonreactive)
[2024-09-01 12:57] LABS: CT PCR NOT DETECTED (Not Detect.); NG PCR NOT DETECTED (Not Detect.)
[2024-09-02 15:29] LABS: RPR Rapid Plasma Reagin NON-REACTIVE (NON-REACTIVE)
[2024-09-04 18:22] LABS: HCV Log PCR <1.18 NOT DETECTED Log IU/mL (NOT DETECTED); HepC Viral Load <15 NOT DETECTED IU/mL (NOT DETECTED)
== END 2024-09-01 10:45 | disposition home or self-care (01) ==
LOC: HO.HHCL 10:44
PROVIDERS: Visit Provider General Practice
DX: N94.6 Dysmenorrhea, unspecified (principal); Z11.3 Encounter for screening for infections with a predominantly sexual mode of transmission
CPT/HCPCS: 36415; 80053; 84443; 85025; 86592; 86803; 87389; 87491; 87522; 87591

== ENCOUNTER → 2024-09-30 15:01 | Outpatient (REF) | payer OTHER, MEDICAID, SELFPAY ==
--- NOTE | 2024-09-30 15:05 | CA_ITS ---
Transthoracic Echocardiogram Patient (Last, First, Middle): Miri Marvin, Gender: Female Date of : 2000 Age: 24 Procedure Date: 09/30/2024 Procedure Type: Transthoracic Echocardiogram Location: OP Height: 157.48 cm Weight: 56.7 kg BSA: 1.57 m2 Heart Rate: bpm BP: 118 / 70 mmHg Cable Weaver: DANG Referring MD: Cari Iqbal MD Symptoms: R07.9 INTERMITTENT CHEST PAIN LUSB HEART MURMUR Study Quality: Adequate ECG Rhythm: Sinus Conclusions: - The left ventricular systolic function is normal. The calculated ejection fraction is 60% by biplane method. - No obvious valvular pathology seen on this study. Findings Left Ventricle Normal left ventricular cavity size. There is normal left ventricular wall thickness. The left ventricular systolic function is normal. The calculated ejection fraction is 60% by biplane method. There is no evidence of regional wall motion abnormalities. Diastolic function is normal for age. Right Ventricle Normal right ventricular cavity size and systolic function. Atria Both atria are normal in size. Aortic Valve There is a normal trileaflet aortic valve. There is no aortic valve stenosis. There is no aortic valve regurgitation. Mitral Valve The mitral valve appears normal. There is no mitral valve regurgitation. There is no mitral valve stenosis. Pulmonic Valve The pulmonic valve is likely normal. Tricuspid Valve There is no tricuspid valve regurgitation. Tricuspid regurgitation envelope is inadequate for calculation of right ventricular systolic pressure. Great Vessels The asc aorta and aortic arch are normal in size. Venous The inferior vena cava is normal in size and collapses greater than 50% with inspiration. Pericardium/Pleural There is no evidence of pericardial effusion. Prior Study Comparison No prior study available for comparison. Recommendations, Care & Conclusions No obvious valvular pathology seen on this study. Measurements 2D Linear Measurements IVSd: 0.68 0.6-0.9/0.6-1.0 cm LVIDd: 4.29 3.9-5.3/4.2-5.9 cm LVIDd Index: 2.73 2.4-3.2/2.2-3.1 cm/m2 LVIDs: 2.86 2.0-3.6 cm LVPWd: 0.87 0.7-1.1 cm LA Diam: 3.00 2.7-3.8/3.0-4.0 cm LAIDs Index: 1.91 1.5-2.3 cm/m2 LV Mass: 124.18 67-162/88-224 g LV Mass Index: 79.10 43-95/49-115 g/m2 LVOT Diam: 2.00 3.0+(-)1.3 cm 2D Systolic Function EF 4C: 61.60 >55% EF 2C: 62.70 >55% EF BiP: 60.40 >55% Mitral Valve MV Pk E: 0.86 MV PK A: 0.36 MV Decel Time: 269.00 E/A: 2.40 E'Lateral: 19.10 E'Medial: 13.80 E/E' Med: 6.20 E/E' Lat: 4.50 PHT: 79.00 MVA PHT: 2.78 Decel [place]: 3.18 Aortic Valve AoV Pk Chuckie: 1.33 AoV Mn Chuckie: 0.89 AoV VTI: 0.36 AoV Pk Grad: 7.00 Aov Mn Grad: 4.00 JATIN Cont.VTI: 2.34 LVOT LVOT Pk Chuckie: 1.02 LVOT Mn Chuckie: 0.68 LVOT VTI: 0.27 LVOT Pk Grad: 4.00 LVOT Mn Grad: 2.00 LVOT Diam: 2.00 LVOT Area: 3.14 Diastolic Function MV Pk E: 0.86 MV Pk A: 0.36 E/A: 2.40 E'Medial: 13.80 E/E' Med: 6.20 E' Laterial: 19.10 E/E' Lat: 4.50 Right Ventricle TAPSE (mm): 22.00 TVS' Chuckie: 11.20 Tricuspid Valve RA Press: 3.00 Great Vessels Aorta Sinus of Valsalva: 2.65 2.0-3.[address] [place]: 2.06 1.7-3.4 cm Ao Asc: 2.40 2.1-3.4 cm Ao Arch: 2.30 Updated in Other Vendor System with Status of Final Ab Cook MD electronically signed on 10/01/2024 10:45:59 AM with status of Final
--- OUTSIDE RECORDS SUMMARY | 2024-09-30 15:07 | XMS_ITS | Encounter Summary ---
Author Organization [employer] Address [address] [place] [address] Care Team Providers Care Card Lacer Jacquard Name Role Phone Cari Iqbal MD Primary Care Provider [phone] Reason for Visit * Reason Onset Date Comments insurance 09/01/2024 Encounter Details Date Type Department Care Team (Late st Contact Info) Description 09/01/2024 Telephone [facility] [address] [place], [place] [phone] Cari Iqbal MD [address] [place], [place] [phone] insurance Social History Tobacco Use Types Packs/Day Years Used Date Smoking Tobacco: Never Passive Smoke Exposure: Never Smokeless Tobacco: Never Alcohol Use Standard Drinks/Week Comments Not Currently 0 (1 standard drink = 0.6 oz pur e alcohol) occasionally Alcohol Answer Date Recorded How often do you have a drink containing alcohol ? 2 09/01/2024 How many drinks containing a lcohol do you have on a typical day when you are drinking? 0 09/01/2024 How often do you have six or more drinks on one occasion? 0 09/01/2024 Housing Stability Answer Date Recorded What is [...] Miscellaneous Notes * Telephone Encounter - Mona Hortones - 09/01/2024 9:44 AM EST Pt walked in for appt on 09/01/24 pt pcp for [facility] is other pcp, I informed [...] on filedocumented in this encounter Care Teams Card Lacer Jacquard Relationship Specialty Start Date End Date Cari Iqbal MD [address] [place] [address] PCP - General Family Medicine 09/01/24 documented as of this encounter
--- OUTSIDE RECORDS SUMMARY | 2024-09-30 15:07 | XMS_ITS | Clinical Summary ---
Author Organization Formerly [facility] [employer] Address [address] [place] [address] 7 [place] [address] Care Team Providers Care Packaging Clerk Name Role Phone Cari Iqbal MD Primary Care Provider [phone] Allergies No known active allergies Medications No known medications Active Problems Problem Noted Date Diagnosed Date Dysmenorrhea 08/14/2018 Encounters Date Type Department Care Team Description 09/18/[address] [address] Amelia Connell RN Results 09/01/2024 9:45 AM EST Office Visit [address] [address] Cari Iqbal MD Crampy pain associated with menses (Primary Dx); Routine screening for STI (sexually transmitted infection); Intermittent chest pain 09/01/2024 Orders Only [facility] [address] [place] [address] [phone] Cari Iqbal MD 09/01/[address] [phone] Cari Iqbal MD insurance 09/01/2024 Travel 08/28/[address] [address] Cari Iqbal MD telephone call 08/20/2024 Patient Outreach [address] [address] Cari Iqbal MD Pre-visit Planning ((Unable to reach for PVP screening, LVM)) 07/16/[address] [address] Crai Iqbal MD New Patient from Last 3 Months Immunizations Name Administration Dates Next Due DTaP, 5 pertussis antigens 08/30/2005,,2001,10/13,2001 HPV, Quadrivalent 12/14/2013,12/04/2012,09/25/19 13 Hep A, ped/adol, 2 dose 01/13/2015,12/14/2013 Hep B, Adolescent or Pediatric 02/16/2002,2000,2001 Hib (PRP-T) 08/13/2002, 2,2001,07/08 IPV 08/30/2005, 2,2001,07/08 Influenza injectable quadriv alent preservative free 08/14/2018,07/10/2017,12/14/2013 Influenza, IIV3, injectable 05/26/2009 Influenza, Split (incl. sherita fied surface antigen) 07/17/2010 Influenza, live, intranasal 09/25/2012 MMR 08/30/2005,05/11/2002 Meningococcal MCV4P ACYW-135 07/10/2017,09/25/19 13 Novel [id number], all formulations 05/26/2009 Pneumococcal Conjugate PCV 7 2001,10/14/19 02,2001 Tdap 09/25/2012 Varicella 11/27/2007,05/11/2002 Social History Tobacco Use Types Packs/Day Years [...] Health Maintenance Due Date Last Done Comments Depression Screening 2001 Family Planning (PISQ) 2016 Pap Smear 2022 DTaP/Tdap/Td Vaccines (7 - Td or Tdap) 09/25/2022 09/25/2012, 08/30/2005, 11/12/2002, Additional history exists COVID-19 Vaccine ( season) 2024 10/23/2021, 03/29/2021, 03/08/2021 Influenza Vaccine (#1) 2024 9, 07/10/2017, 12/14/2013, Additional history exists Alcohol/Substance Use Screening 09/01/2025 09/01/2024 Chlamydia and Gonorrhea Screening 09/01/2025 09/01/2024 SDOH Screening 09/01/2025 09/01/2024 Tobacco Screening 09/01/2025 09/01/2024 Zoster Vaccines (1 of 2) 2051 RSV Patients and Patients Aged 60 years or older (1 - 1-dose 75+ series) 2076 Pneumococcal Vaccine: Pediatrics (0 to 5 Years) and At-Risk Patients (6 to 49) Years) Aged Out 2001, 2001, 2001 No longer eligible based on patient's age to complete this topic Hepatitis B Vaccines Completed 02/16/2002, 2001, 2001 HIB Vaccines Completed 08/13/2002, 01/2002, 2001, Additional history exists IPV Vaccines Completed 08/30/2005, 01/2002, 2001, Additional history exists HPV Vaccines Completed 12/14/2013, 11/11, 09/25/2012 Hepatitis A Vaccines Completed 01/13/2015, 12/15/19 14 Meningococcal Vaccine Completed 07/10/2017, 013 HIV Screening Completed 09/01/2024 Hepatitis C Screening Completed 09/01/2024, 025 RSV under 20 months Aged Out No longe r eligible based on patient's age to complete this topic Rotavirus Vaccines Aged Out No longer eligible based on patient's age to complete this topic Procedures Procedure Name Priority Date/Time Associated Diagnosis Comments ECG 12-LEAD Routine 09/01/2024 1:33 PM EST Intermittent chest pain HEPATITIS C VIRAL RNA, QUANTITATIVE, REAL-TIME PCR Routine 09/01/2024 10:46 AM EST TSH W/REFLEX TO FT4 Routine 09/01/2024 1 0:46 AM EST Crampy pain associated with menses COMPREHENSIVE METABOLIC PANEL Routine 09/01/2024 10:46 AM EST Crampy pain associated with menses CBC WITH AUTO DIFFERENTIAL Routine 09/01/2024 10:46 AM EST Crampy pain associated with menses RPR (MONITOR) W/REFL TITER Routine 09/01/2024 10:46 AM EST Routine screening for STI (sexually transmitted infection) HEPATITIS C AB W/REFL TO HCV RNA, QN, PCR Routine 09/01/2024 10:46 AM EST Routine screening for STI (sexually transmitted infection) HIV 1/2 ANTIGEN/ANTIBODY, FOURTH GENERATION W/RFL Routine 09/01/2024 10:46 AM EST Routine screening for STI (sexually transmitted infection) CHLAMYDIA/N. GONORRHOEAE RNA, TMA, UROGENITAL Routine 09/01/2024 10:46 AM EST Routine screening for STI (sexually transmitted infection) from Last 3 Months Results * ECG 12 lead (09/01/2024 1:33 PM EST) Narrative Cari Iqbal MD - 09/01/2024 1:33 PM EST NSR, SD 146, Qyc 428, normal axis, VR 78 Cari Iqbal MD ECG ORDERABLES Final Result * TSH W/Reflex to FT4 (09/01/2024 10:46 AM EST) TSH reflex Free T4 1.86 0.32 - 4.0 uIU/mL [facility] Blood Venous blood specimen / Unknown 09/01/2024 10:46 AM EST 09/01/2024 11:17 AM EST Cari Iqbal MD LAB BLOOD ORDERABLES Final Res ult [facility] [address] [place] [phone] * Hepatitis C Viral RNA, Quantitative, Real-Time PCR (09/01/2024 10:46 AM EST) Hepatitis C Viral Load <15 NOT DETECTED NOT DETECTED IU/mL [facility] HCV Log PCR <1.18 NOT DETECTED NOT DETECTED Log IU/mL [facility] Comment:For additional infor mation, please refer [email or web address]/faq/[email or web address](This link is being provided for informational/educational purposes only.)THIS TEST WAS PERFORMED AT:[facility] [place] [phone] ZHANG MD 09/01/2024 10:4 6 AM EST 09/02/2024 10:35 AM EST Cari Iqbal MD LAB BLOOD ORDERABLES Final Res ult [facility] [address] [place] [phone] * (ABNORMAL) CBC auto differential (09/01/2024 10:46 AM EST) Pathologist [facility] White Blood Count 5.6 4.8 - 10.8 X10*3/uL [facility] Red Blood Count 4.72 4.20 - 5.50 X10*6/uL [facility] Hemoglobin 14.0 12.0 - 16.0 g/dl [facility] Hematocrit 42.0 37.0 - 47.0 % [facility] Mean Corpuscular Volume 89.0 80.0 - 98.0 fL [facility] Mean Corpuscular Hemoglobin 29.7 27.0 - 33.0 pg [facility] Mean Corpuscular HGB Conc 33.3 31.0 - 35.0 g/dl [facility] Red Cell Distribution Width 12.0 11.0 - 16.0 % [facility] Platelet Count 199 160 - 400 X10*3/uL [facility] Mean Platelet Volume 11.4 9.4 - 12.3 fL [facility] Neutrophils Percent Auto 46.6 45 - 73 % [facility] Imm Gran Pct Auto 0.5(H) 0.0 - 0.4 % [facility] Lymphocytes Percent Auto 40.5(H) 20 - 40 % [facility] Monocytes Percent Auto 8.6 2 - 11 % [facility] Eosinophils Percent Auto 2.9 0 - 4 % [facility] Basophils Percent Auto 0.9 0 - 2 % [facility] NRBC Pct Auto 0.0 0.0 - 0.2 /100WBC [facility] Neutrophils Absolute Auto 2.6 2.0 - 8.3 x10*3/uL [facility] Imm Gran Abs Auto 0.03 0.00 - 0.03 X10*3/uL [facility] Lymphocytes Absolute Auto 2.3 1.2 - 4.9 X10*3/uL [facility] Monocytes Absolute Auto 0.5 0.1 - 1.2 X10*3/uL [facility] Eosinophils Absolute Auto 0.2 0.0 - 0.4 X10*3/uL [facility] Basophils Absolute Auto 0.1 0.0 - 0.2 X10*3/uL [facility] NRBC Abs Auto 0.000 0.0 - 0.012 X10*3/uL [facility] Blood Venous blood specimen / Unknown 09/01/2024 10:46 AM EST 09/01/2024 11:17 AM EST us Cari Iqbal MD LAB BLOOD ORDERABLES Final Res ult [facility] [address] [place] [phone] * (ABNORMAL) Hepatitis C Antibody with Reflex to HCV, RNA, Quantitative, Real- Time PCR (09/01/2024 10:46 AM EST) Hepatitis C Antibody Reactive( A) Nonreactive [facility] Comment:Presumptive evidence of antibodies to HCV. Blood Venous blood specimen / Unknown 09/01/2024 10:46 AM EST 09/01/2024 11:17 AM EST us Cari Iqbal MD LAB BLOOD ORDERABLES Final Res ult [facility] [address] [place] [phone] * Chlamydia/N. Gonorrhoeae RNA, TMA, Urogenitial (09/01/2024 10:46 AM EST) CT PCR NOT DETECTED Not Detect. [facility] Comment:A not detected test result does not exclude the possibilityof infection because test results can be affected byimproper specimen collection, concurrent antibiotic therapy,or the number of organisms in the specimen which may bebelow the sensitivity of the test. As with many diagnostictests, results from the Xpert CT/NG assay should beinterpreted in conjunction with other laboratory andclinical data available to the clinician.Xpert CT/NG performance has not been evaluated in patientsless than 14 years of age. The assay should not be used forthe evaluationof suspected sexual abuse or for other medico-legalindications. Additional testing is recommended in anycircumstance when false positive or false negative resultscould lead to adverse medical, social or psychologicalconsequences. NG PCR NOT DETECTED Not Detect. [facility] Comment:A not detected test result does not exclude the possibilityof infection because test results can be affected byimproper specimen collection, concurrent antibiotic therapy,or the number of organisms in the specimen which may bebelow the sensitivity of the test. As with many diagnostictests, results from the Xpert CT/NG assay should beinterpreted in conjunction with other laboratory andclinical data available to the clinician.Xpert CT/NG performance has not been evaluated in patientsless than 14 years of age. The assay should not be used forthe evaluationof suspected sexual abuse or for other medico-legalindications. Additional testing is recommended in anycircumstance when false positive or false negative resultscould lead to adverse medical, social or psychologicalconsequences. Urine (Urine, Random) 09/01/2024 10:46 AM EST 09/01/2024 11:18 AM EST Narrative [facility] - 09/01/2024 12:57 PM EST Urine Cari Iqbal MD LAB MICROBIOLOGY - GENERAL ORD ERABLES Final Result Performing Organization Address [facility] Co de Phone Number [facility] [address] [place] [phone] * RPR (Monitor) with Reflex to??Titer (09/01/2024 10:46 AM EST) RPR (Monitor) w/Refl Titer NON-REACTI VE NON-REACT MARK [facility] Comment:THIS TEST WAS PERFOR MED AT:[facility] [place] [phone] ZHANG MD Rapid Plasma Reagin Ab Titer TNP [facility] Blood Venous blood specimen / Unknown 09/01/2024 10:46 AM EST 09/01/2024 11:17 AM EST Cari Iqbal MD LAB BLOOD ORDERABLES Final Res ult Performing Organization Address [facility] Co de Phone Number [facility] [address] [place] [phone] * HIV-1/2 Antigen and Antibodies, Fourth Generation, with Reflexes (09/01/2024 10:46 AM EST) HIV AB/AG Nonreactive Nonreactive [facility] Comment:HIV-1 p24 Ag and/or HIV-1/HIV-2 Ab not detected.A test result that is nonreactive does not exclude thepossibility of exposure to or infection with HIV-1 and/orHIV-2. Nonreactive results in this assay for individualswith prior exposure to HIV-1 and/or HIV-2 may be due toantigen and antibody levels that are below the limit ofdetection of this assay.The [email or web address] HIV Ag/Ab Combo assay result andsupplemental assay results should be interpreted inconjunction with the patient's clinical presentation,history and other laboratory results. If the results areinconsistent with clinical evidence, additional testing issuggested to confirm the result. Blood Venous blood specimen / Unknown 09/01/2024 10:46 AM EST 09/01/2024 11:17 AM EST us Cari Iqbal MD LAB BLOOD ORDERABLES Final Res ult [facility] [address], [place] [phone] * (ABNORMAL) Comprehensive Metabolic Panel (09/01/2024 10:46 AM EST) Sodium 139 135 - 145 mmol/L [facility] Potassium 4.1 3.3 - 5.1 mmol/L [facility] Chloride 105 96 - 108 mmol/L [facility] Carbon Dioxide 29 22 - 29 mmol/L [facility] Anion Gap 9(L) 12 - 20 [facility] Urea Nitrogen (BUN) 18(H) 9 - 16 mg/dL [facility] Creatinine, Serum 0.73 0.5 - 1.4 mg/dL [facility] Estimated Glomerular Filt Rate >60 [facility] Comment:Chronic Kidney Disea se: Estimated GFR < 60 mL/min/[id number] Kidney Disease: Estimated GFR < 15 mL/min/1.73m2 Glucose 74 60 - 115 mg/dL [facility] Calcium 9.1 8.4 - 10.2 mg/dL [facility] Bilirubin, Total 0.6 0.0 - 1.0 mg/dL [facility] Aspartate Amino Transferase 24 5 - 31 U/L [facility] Alanine Aminotransferase 30 0 - 31 U/L [facility] Total Protein 7.6 6.5 - 8.0 g/dL [facility] Albumin Level 4.3 3.5 - 5.0 g/dL [facility] Alkaline Phosphatase 69 39 - 117 U/L [facility] Blood Venous blood specimen / Unknown 09/01/2024 10:46 AM EST 09/01/2024 11:17 AM EST us Cari Iqbal MD LAB BLOOD ORDERABLES Final Res ult [facility] [address] [place] [phone] from Last 3 Months Insurance [facility] Care Teams Packaging Clerk Relationship Specialty Start Date End Date Cari Iqbal MD [address] [place] [phone] PCP - General Family Medicine 09/01/24
--- OUTSIDE RECORDS SUMMARY | 2024-09-30 15:07 | XMS_ITS | Encounter Summary ---
Author Organization [employer] Address [address] [place] [address] [address] [place] [address] Care Team Providers Care Collection Systems Technician Name Role Phone Cari Iqbal MD Primary Care Provider [phone] Reason for Referral * Imaging (Routine) - Authorized Specialty Diagnoses / Procedures Referred By Contac t Referred To Contact Cardiology Diagnoses Intermittent chest pain Procedures Transthoracic Echo (TTE) Complete Cari Iqbal MD [address] [place] [address] Phone: tel: fax: [address] Phone: tel: fax: Referral ID Status Reason Start Date Expiration Date Visits Requested Visits Authorized [id number] Authorized Perform Procedure 09/01/2024 09/01/2025 1 1 Reason for Visit * Reason Comments CHW - Office Visit New Patient Encounter Details Date Type Department Care Team (Late st Contact Info) Description 09/01/2024 9:45 AM EST Office Visit [facility] [address] [place] [address] [phone] Cari Iqbal MD [address] [place] [address] [phone] Crampy pain associated with menses (Primary Dx); Routine screening for STI (sexually transmitted infection); Intermittent chest pain Social History Tobacco Use Types Packs/Day Years [...] 9:52 AM EST documented in this encounter Progress Notes * Cari Iqbal MD - 09/01/2024 9:45 AM EST Images from the original note were not included. Subjective: Miri Marvin is a 24 y.o. female who presents to the office for a new patient visit. Previous PCP [facility]. Name maldonado Mccarthy Interim history: Heavy painful periods, menses onset at age 11/12. No OCPs or hormonal control ever. . Uses home and OTC medications to manage her symptoms. Current concerns: Intermittent CP, sometimes with exercise. Her brother has a pacemaker for enlarged heart. Grandfather had cardiac issues too, unsure if arrythmia or CVD. Patient Active Problem List Diagnosis Dysmenorrhea History reviewed. No pertinent surgical history. No family history on file. Lab Results Since Your Last Visit as of 09/01/2024, sorted by update time Updated Procedure 09/01/24 1317 HIV-1/2 Antigen and Antibodies, Fourth Generation, with Reflexes Collected: 09/01/24 1046 Final result Specimen: Blood, Venous HIV AB/AG Nonreactive 09/01/24 1317 Hepatitis C Antibody with Reflex to HCV, RNA, Quantitative, Real-Time PCR Collected: 09/01/24 1046 Final result Specimen: Blood, Venous Hepatitis C Antibody Reactive Abnormal 09/01/24 1242 Comprehensive Metabolic Panel Collected: 09/01/24 1046 Final result Specimen: Blood, Venous Sodium 139 mmol/L Glucose 74 mg/dL Potassium 4.1 mmol/L Calcium 9.1 mg/dL Chloride 105 mmol/L Bilirubin, Total 0.6 mg/dL Carbon Dioxide 29 mmol/L Aspartate Amino Transferase 24 U/L Anion Gap 9 Low Alanine Aminotransferase 30 U/L Urea Nitrogen (BUN) 18 High mg/dL Total Protein 7.6 g/dL Creatinine, Serum 0.73 mg/dL Albumin Level 4.3 g/dL Estimated Glomerular Filt Rate >60 Alkaline Phosphatase 69 U/L 09/01/24 1242 TSH W/Reflex to FT4 Collected: 09/01/24 1046 Final result Specimen: Blood, Venous TSH reflex Free T4 1.86 uIU/mL 09/01/24 1133 CBC auto differential Collected: 09/01/24 1046 Final result Specimen: Blood, Venous White Blood Count 5.6 X10*3/uL Lymphocytes Percent Auto 40.5 High % Red Blood Count 4.72 X10*6/uL Monocytes Percent Auto 8.6 % Hemoglobin 14.0 g/dl Eosinophils Percent Auto 2.9 % Hematocrit 42.0 % Basophils Percent Auto 0.9 % Mean Corpuscular Volume 89.0 fL NRBC Pct Auto 0.0 /100WBC Mean Corpuscular Hemoglobin 29.7 pg Neutrophils Absolute Auto 2.6 x10*3/uL Mean Corpuscular HGB Conc 33.3 g/dl Imm Gran Abs Auto 0.03 X10*3/uL Red Cell Distribution Width 12.0 % Lymphocytes Absolute Auto 2.3 X10*3/uL Platelet Count 199 X10*3/uL Monocytes Absolute Auto 0.5 X10*3/uL Mean Platelet Volume 11.4 fL Eosinophils Absolute Auto 0.2 X10*3/uL Neutrophils Percent Auto 46.6 % Basophils Absolute Auto 0.1 X10*3/uL Imm Gran Pct Auto 0.5 High % NRBC Abs Auto 0.000 X10*3/uL Social History Living situation: lives with mother Employment/Education: works for non-profit, second time worker student for accounting/finance Diet/exercise: keto diet/cardio and weights Substance use: denies -alcohol social -tobacco denies -opioids denies Sexual activity: AMAB Contraception: none Mental health: denies No Known Allergies Review of Systems Constitutional: Negative. Respiratory: Negative. Cardiovascular: Negative. Gastrointestinal: Negative. Genitourinary: Positive for menstrual problem. Musculoskeletal: Negative. Visit Vitals BP (!) 144/69 (BP Location: Left arm, Patient Position: Sitting, BP Cuff Size: Adult) Pulse 72 Temp 97.7 ??F (36.5 ??C) (Temporal) Resp 17 Ht 5' 2 (1.575 m) Wt 131 lb 6.4 oz (59.6 kg) LMP 07/28/2024 (Approximate) BMI 24.03 kg/m?? Smoking Status Never BSA 1.61 m?? Physical Exam Vitals and nursing note reviewed. Constitutional: Appearance: Normal appearance. HENT: Head: Normocephalic and atraumatic. Cardiovascular: Rate and Rhythm: Normal rate and regular rhythm. Pulses: Normal pulses. Heart sounds: Murmur heard. Comments: Systolic murmur at LUSB Pulmonary: Effort: Pulmonary effort is normal. Breath sounds: Normal breath sounds. Skin: General: Skin is warm and dry. Neurological: General: No focal deficit present. Mental Status: She is alert and oriented to person, place, and time. Psychiatric: Mood and Affect: Mood normal. Behavior: Behavior normal. Problem List Items Addressed This Visit None Visit Diagnoses Crampy pain associated with menses - Primary Relevant Orders CBC auto differential (Completed) Comprehensive Metabolic Panel (Completed) TSH W/Reflex to FT4 (Completed) Routine screening for STI (sexually transmitted infection) Relevant Orders Chlamydia/N. Gonorrhoeae RNA, TMA, Urogenitial (Completed) HIV-1/2 Antigen and Antibodies, Fourth Generation, with Reflexes (Completed) Hepatitis C Antibody with Reflex to HCV, RNA, Quantitative, Real-Time PCR (Completed) RPR (Monitor) with Reflex to Titer Intermittent chest pain Relevant Orders ECG 12 lead (Completed) Transthoracic Echo (TTE) Complete Routine Health Maintenance Optometry: not indicated Dental: established with dental home yes Lab Review: no lab studies available for review at time of visit COVID vaccination status: due Outstanding IZ: Flu, Dtap (PCV20 - 19-65 with immunocompromising condition, tobacco use, diabetes, or >65 y/o) Shingrix (50 and over, 2 dose series, 2-6 months apart) Tdap: one dose after 19 y/o, then Td or Tdap booster every 10 years. Routine Cancer Screening Pap- at age 22, overdue No current outpatient medications on file. No current facility-administered medications for this visit. Immunization History Administered Date(s) Administered DTaP, 5 pertussis antigens 2001, 2001, 2001, 11/12/2002, 08/30/2005 HPV, Quadrivalent 09/25/2012, 12/04/2012, 12/14/2013 Hep A, ped/adol, 2 dose 12/14/2013, 01/13/2015 Hep B, Adolescent or Pediatric 2001, 2001, 02/16/2002 Hib (PRP-T) 2001, 2001, 2001, 08/13/2002 IPV 2001, 2001, 2001, 08/30/2005 Influenza injectable quadrivalent preservative free 12/14/2013, 07/10/2017, 08/14/2018 Influenza, IIV3, injectable 05/26/2009 Influenza, Split (incl. purified surface antigen) 07/17/2010 Influenza, live, intranasal 09/25/2012 MMR 05/11/2002, 08/30/2005 Meningococcal MCV4P ACYW-135 09/25/2012, 07/10/2017 Novel [id number], all formulations 05/26/2009 Pfizer Covid-19 Vaccine 12+ 03/08/2021, 03/29/2021 Pfizer Covid-19 Vaccine 12+ robbie-sucrose (Snyder Cap) 10/23/2021 Pneumococcal Conjugate PCV 7 2001, 2001, 2001 Tdap 09/25/2012 Varicella 05/11/2002, 11/27/2007 documented in this encounter Plan of Treatment Scheduled Orders Name Type Priority Associated Diagnoses Order Schedule Transthoracic Echo (TTE) Complete Echocardiography Routine Intermittent chest pain Expected: 09/01/2024 (Approximate), Expires: 09/01/2026 documented as of this encounter Procedures Procedure Name Priority Date/Time Associated Diagnosis Comments ECG 12-LEAD Routine 09/01/2024 1:33 PM EST Intermittent chest pain TSH W/REFLEX TO FT4 Routine 09/01/2024 1 0:46 AM EST Crampy pain associated with menses CBC WITH AUTO DIFFERENTIAL Routine 09/01/2024 10:46 AM EST Crampy pain associated with menses HEPATITIS C AB W/REFL TO HCV RNA, QN, PCR Routine 09/01/2024 10:46 AM EST Routine screening for STI (sexually transmitted infection) CHLAMYDIA/N. GONORRHOEAE RNA, TMA, UROGENITAL Routine 09/01/2024 10:46 AM EST Routine screening for STI (sexually transmitted infection) RPR (MONITOR) W/REFL TITER Routine 09/01/2024 10:46 AM EST Routine screening for STI (sexually transmitted infection) HIV 1/2 ANTIGEN/ANTIBODY, FOURTH GENERATION W/RFL Routine 09/01/2024 10:46 AM EST Routine screening for STI (sexually transmitted infection) COMPREHENSIVE METABOLIC PANEL Routine 09/01/2024 10:46 AM EST Crampy pain associated with menses documented in this encounter Results * ECG 12 lead (09/01/2024 1:33 PM EST) Narrative Cari Iqbal MD - 09/01/2024 1:33 PM EST NSR, OR 146, Qyc 428, normal axis, VR 78 us Cari Iqbal MD ECG ORDERABLES Final Result * TSH W/Reflex to FT4 (09/01/2024 10:46 AM EST) TSH reflex Free T4 1.86 0.32 - 4.0 uIU/mL [facility] Blood Venous blood specimen / Unknown 09/01/2024 10:46 AM EST 09/01/2024 11:17 AM EST us Cari Iqbal MD LAB BLOOD ORDERABLES Final Res ult [facility] [address] [place] [address] [phone] * (ABNORMAL) Comprehensive Metabolic Panel (09/01/2024 10:46 AM EST) Sodium 139 135 - 145 mmol/L [facility] Potassium 4.1 3.3 - 5.1 mmol/L [facility] Chloride 105 96 - 108 mmol/L [facility] Carbon Dioxide 29 22 - 29 mmol/L [facility] Anion Gap 9(L) 12 - 20 [facility] Urea Nitrogen (BUN) 18(H) 9 - 16 mg/dL [facility] Creatinine, Serum 0.73 0.5 - 1.4 mg/dL [facility] Estimated Glomerular Filt Rate >60 [facility] Comment:Chronic Kidney Disea se: Estimated GFR < 60 mL/min/1.93n2Puqeop Kidney Disease: Estimated GFR < 15 mL/min/1.73m2 Glucose 74 60 - 115 mg/dL [facility] Calcium 9.1 8.4 - 10.2 mg/dL [facility] Bilirubin, Total 0.6 0.0 - 1.0 mg/dL [facility] Aspartate Amino Transferase 24 5 - 31 U/L [facility] Alanine Aminotransferase 30 0 - 31 U/L [facility] Total Protein 7.6 6.5 - 8.0 g/dL [facility] Albumin Level 4.3 3.5 - 5.0 g/dL [facility] Alkaline Phosphatase 69 39 - 117 U/L [facility] Blood Venous blood specimen / Unknown 09/01/2024 10:46 AM EST 09/01/2024 11:17 AM EST us Cari Iqbal MD LAB BLOOD ORDERABLES Final Res ult [facility] [address] [place] [phone] * (ABNORMAL) CBC auto differential (09/01/2024 10:46 AM EST) White Blood Count 5.6 4.8 - 10.8 X10*3/uL [facility] Red Blood Count 4.72 4.20 - 5.50 X10*6/uL [facility] Hemoglobin 14.0 12.0 - 16.0 g/dl [facility] Hematocrit 42.0 37.0 - 47.0 % [facility] Mean Corpuscular Volume 89.0 80.0 - 98.0 fL [facility] Mean Corpuscular Hemoglobin 29.7 27.0 - 33.0 pg [facility] Mean Corpuscular HGB Conc 33.3 31.0 - 35.0 g/dl [facility] Red Cell Distribution Width 12.0 11.0 - 16.0 % [facility] Platelet Count 199 160 - 400 X10*3/uL [facility] Mean Platelet Volume 11.4 9.4 - 12.3 fL [facility] Neutrophils Percent Auto 46.6 45 - 73 % [facility] Imm Gran Pct Auto 0.5(H) 0.0 - 0.4 % [facility] Lymphocytes Percent Auto 40.5(H) 20 - 40 % [facility] Monocytes Percent Auto 8.6 2 - 11 % [facility] Eosinophils Percent Auto 2.9 0 - 4 % [facility] Basophils Percent Auto 0.9 0 - 2 % [facility] NRBC Pct Auto 0.0 0.0 - 0.2 /100WBC [facility] Neutrophils Absolute Auto 2.6 2.0 - 8.3 x10*3/uL [facility] Imm Gran Abs Auto 0.03 0.00 - 0.03 X10*3/uL [facility] Lymphocytes Absolute Auto 2.3 1.2 - 4.9 X10*3/uL [facility] Monocytes Absolute Auto 0.5 0.1 - 1.2 X10*3/uL [facility] Eosinophils Absolute Auto 0.2 0.0 - 0.4 X10*3/uL [facility] Basophils Absolute Auto 0.1 0.0 - 0.2 X10*3/uL [facility] NRBC Abs Auto 0.000 0.0 - 0.012 X10*3/uL [facility] Blood Venous blood specimen / Unknown 09/01/2024 10:46 AM EST 09/01/2024 11:17 AM EST us Cari Iqbal MD LAB BLOOD ORDERABLES Final Res ult [facility] [address] [place] [phone] * RPR (Monitor) with Reflex to??Titer (09/01/2024 10:46 AM EST) RPR (Monitor) w/Refl Titer NON-REACTI VE NON-REACT MARK [facility] Comment:THIS TEST WAS PERFOR MED AT:[facility] [place] [id number] ZHANG MD Rapid Plasma Reagin Ab Titer TNP [facility] Blood Venous blood specimen / Unknown 09/01/2024 10:46 AM EST 09/01/2024 11:17 AM EST Cari Iqbal MD LAB BLOOD ORDERABLES Final Res ult Performing Organization Address [facility]/ZIP Co de Phone Number [facility] [address] [place] [phone] * (ABNORMAL) Hepatitis C Antibody with Reflex to HCV, RNA, Quantitative, Real- Time PCR (09/01/2024 10:46 AM EST) Pathologist [facility] Hepatitis C Antibody Reactive( A) Nonreactive [facility] Comment:Presumptive evidence of antibodies to HCV. Blood Venous blood specimen / Unknown 09/01/2024 10:46 AM EST 09/01/2024 11:17 AM EST Cari Iqbal MD LAB BLOOD ORDERABLES Final Res ult Performing Organization Address [facility] Co de Phone Number [facility] [address] [place] [phone] * HIV-1/2 Antigen and Antibodies, Fourth Generation, with Reflexes (09/01/2024 10:46 AM EST) Pathologist [facility] HIV AB/AG Nonreactive Nonreactive [facility] Comment:HIV-1 p24 Ag and/or HIV-1/HIV-2 Ab not detected.A test result that is nonreactive does not exclude thepossibility of exposure to or infection with HIV-1 and/orHIV-2. Nonreactive results in this assay for individualswith prior exposure to HIV-1 and/or HIV-2 may be due toantigen and antibody levels that are below the limit ofdetection of this assay.[facility] Appointment Scheduler HIV Ag/Ab Combo assay result andsupplemental assay results should be interpreted inconjunction with the patient's clinical presentation,history and other laboratory results. If the results areinconsistent with clinical evidence, additional testing issuggested to confirm the result. Blood Venous blood specimen / Unknown 09/01/2024 10:46 AM EST 09/01/2024 11:17 AM EST us Cari Iqbal MD LAB BLOOD ORDERABLES Final Res ult [facility] [address] [place] [phone] * Chlamydia/N. Gonorrhoeae RNA, TMA, Urogenitial (09/01/2024 10:46 AM EST) CT PCR NOT DETECTED Not Detect. [facility] Comment:A not detected test result does [...] psychologicalconsequences. NG PCR NOT DETECTED Not Detect. [facility] Comment:A not detected test result does [...] AM EST 09/01/2024 11:18 AM EST Narrative [facility] - 09/01/2024 12:57 PM EST Urine us Cari Iqbal MD LAB MICROBIOLOGY - GENERAL ORD ERABLES Final Result [facility] [address] [place] [phone] documented in this encounter Visit Diagnoses Diagnosis Crampy pain associated with menses- Primary Routine screening for STI (sexually transmitted infection) Screening examination for venereal disease Intermittent chest pain documented in this encounter Care Teams Collection Systems Technician Relationship Specialty Start Date End Date Cari Iqbal MD [address] [place] [phone] PCP - General Family Medicine 09/01/24 documented as of this encounter
--- OUTSIDE RECORDS SUMMARY | 2024-09-30 15:07 | XMS_ITS | Encounter Summary ---
Author Organization [employer] Address [address] [place] [address] Care Team Providers Care Principal Statistical Programmer Name Role Phone Cari Iqbal MD Primary Care Provider [phone] Encounter Details Date Type Department Care Team [...] on filedocumented in this encounter Care Teams Principal Statistical Programmer Relationship Specialty Start Date End Date Cari Iqbal MD [address] [place] [address] PCP - General Family Medicine 09/01/24 documented as of this encounter
--- OUTSIDE RECORDS SUMMARY | 2024-09-30 15:08 | XMS_ITS | Encounter Summary ---
Author Organization [facility] Address [address] [place] [phone] Phone Care Team Providers Care Government Employee Name Role Phone Provider, Blayne BRIGHT Primary Care Provider [phone] Encounter Details Date Type Department Care Team (Late st Contact Info) Description 01/14/[address] [facility] Family Medicine [address] [place] [address] Family Medicine, Physician [address] [place], [place] [phone] Social History Tobacco Use Types Packs/Day Years [...] on filedocumented in this encounter Care Teams Government Employee Relationship Specialty Start Date End Date Provider, MD Blayne [address] [place] [phone] PCP - General Pediatrics 03/20/21 11/18/22 documented as of this encounter
--- OUTSIDE RECORDS SUMMARY | 2024-09-30 15:08 | XMS_ITS | Encounter Summary ---
Author Organization [facility] Address [address] [place] [phone] Phone Care Team Providers Care Deck Steward Name Role Phone Provider, Blayne BRIGHT Primary Care Provider [phone] Encounter Details Date Type Department Care Team (Late st Contact Info) Description 09/26/2012 Documentation [facility] Family Medicine [address] [place] [address] Family Medicine, Physician [address] [phone] Social History Tobacco Use Types Packs/Day Years [...] on filedocumented in this encounter Care Teams Deck Steward Relationship Specialty Start Date End Date Provider, MD Blayne [address] [place] [phone] PCP - General Pediatrics 03/20/21 11/18/22 documented as of this encounter
--- OUTSIDE RECORDS SUMMARY | 2024-09-30 15:08 | XMS_ITS | Encounter Summary ---
Author Organization [employer] Address [address] [place] [address] Care Team Providers Care Frame Runner Name Role Phone Cari Iqbal MD Primary Care Provider [phone] Encounter Details Date Type Department Care Team (Late st Contact Info) Description 09/01/[address] [facility] [address] [place], [place] [phone] Cari Iqbal MD [address] [place], [place] [phone] Social History Tobacco Use Types Packs/Day Years [...] as of this encounter Miscellaneous Notes * Result Encounter Note - Cari Iqbal MD - 09/01/2024 11:59 PM EST Please let patient know that her labs were all normal, except her antibody to Hepatitis C was positive (indicating that she has been exposed to Hep C at some point), but her viral load is undectable.Was she treated for Hep C in the past? documented in this encounter Plan of Treatment Not on file documented as of this encounter Procedures Procedure Name Priority Date/Time Associated Diagnosis Comments HEPATITIS C VIRAL RNA, QUANTITATIVE, REAL-TIME PCR Routine 09/01/2024 10:46 AM EST documented in this encounter Results * Hepatitis C Viral RNA, Quantitative, Real-Time PCR (09/01/2024 10:46 AM EST) Hepatitis C Viral Load <15 NOT DETECTED NOT DETECTED IU/mL [facility] HCV Log PCR <1.18 NOT DETECTED NOT DETECTED Log IU/mL [facility] Comment:For additional infor mation, please refer [email or web address].Fl[employer]/faq/[email or web address](This link is being provided for informational/educational purposes only.)THIS TEST WAS PERFORMED AT:[employer] [place] [phone] ZHANG MD 09/01/2024 10:4 6 AM EST 09/02/2024 10:35 AM EST us Cari Iqbal MD LAB BLOOD ORDERABLES Final Res ult [facility] [address] [place] [phone] documented in this encounter Visit Diagnoses Not on filedocumented in this encounter Care Teams Frame Runner Relationship Specialty Start Date End Date Cari Iqbal MD [address] [place] [phone] PCP - General Family Medicine 09/01/24 documented as of this encounter
--- OUTSIDE RECORDS SUMMARY | 2024-09-30 15:08 | XMS_ITS | Encounter Summary ---
Author Organization [employer] Address [address] [place] [address] Care Team Providers Care Supervisor Capacitor Processing Name Role Phone Cari Iqbal MD Primary Care Provider [phone] Reason for Visit * Reason Onset Date Comments Results 09/18/2024 Encounter Details Date Type Department Care Team (Late st Contact Info) Description 09/18/2024 Telephone [facility] [address] [place], [place] [phone] Amelia Connell, RN Results Social History Tobacco Use Types Packs/Day Years [...] your housing situation today? I have rickey johana 09/01/[address] you li [...] t he electric, gas, oil or water [employer] threatened to shut off services in your [...] encounter Miscellaneous Notes * Telephone Encounter - Shalini Jeffries RN - 09/30/2024 1:06 PM EST Noted. * Telephone Encounter - Shalini Jeffries RN - 09/23/2024 4:58 PM EST Incoming call from patient. Patient informed of below BW results. Patient reports she has never been treated for hep C and is unsure how she would have been exposed to hep C. Patient reports she has 1 tattoo but cannot think of any other risk factors. Patient also reports only one sexual partner inher entire life. Patient is aware of viral load returning not detectable however would like to determine next steps if any. Please advise. Patient is worried, RN did educate on dx and possible causes, risk factors, etc * Telephone Encounter - Shalini Jeffries RN - 09/22/2024 11:17 AM EST TC x3 placed to patient [phone] in regards to below message. Patient did answer, RN left VM requesting CB to red team nurses. TC placed to mom [phone] however also no answer, RN left VM requesting CB to red team nurses. RN will send letter to address on file. Patient to f/u PRN. ----- Message from Cari Iqbal MD sent at 09/17/2024 8:30 PM EST ----- Please let patient know that her labs were all normal, except her antibody to Hepatitis C was positive (indicating that she has been exposed to Hep C at some point), but her viral load is undectable.Was she treated for Hep C in the past? * Telephone Encounter - Shalini Jeffries RN - 09/18/2024 3:07 PM EST TC x2 placed to patient [phone] in regards to below message. Patient did answer, RN left VM requesting CB to red team nurses. RN will re-attempt Saturday AM. ----- Message from Cari Iqbal MD sent at 09/17/2024 8:30 PM EST ----- Please let patient know that her labs were all normal, except her antibody to Hepatitis C was positive (indicating that she has been exposed to Hep C at some point), but her viral load is undectable.Was she treated for Hep C in the past? * Telephone Encounter - Amelia Connell RN - 09/18/2024 9:33 AM EST Telephone call placed to patient in regards to message below. No answer, left voicemail. Patient tocall as needed. * Telephone Encounter - Amelia Connell RN - 09/18/2024 9:33 AM EST ----- Message from Cari Iqbal MD sent at 09/17/2024 8:30 PM EST ----- Please let patient know that her labs [...] on filedocumented in this encounter Care Teams Supervisor Capacitor Processing Relationship Specialty Start Date End Date Cari Iqbal MD [address] [place] [address] PCP - General Family Medicine 09/01/24 documented as of this encounter
--- OUTSIDE RECORDS SUMMARY | 2024-09-30 15:08 | XMS_ITS | Encounter Summary ---
Author Organization [employer] Address [address] [place] [address] 7 [place] [address] Care Team Providers Care Computational Sciences Professor Name Role Phone Cari Iqbal MD Primary Care Provider [phone] Reason for Visit * Reason Onset Date Comments New Patient 07/16/2024 Encounter Details Date Type Department Care Team (Late st Contact Info) Description 07/16/2024 Telephone [facility] [address] [place], [place] [phone] Cari Iqbal MD [address] [place], [place] [phone] New Patient Social History Tobacco Use Types [...] Medical Conditions: Last seen 5+ years at [facility] Apptmnt reminder and release form sent via mail . documented in this encounter Plan of Treatment Not on file documented as of this encounter Visit Diagnoses Not on filedocumented in this encounter Care Teams Computational Sciences Professor Relationship Specialty Start Date End Date Cari Iqbal MD [address] [place], [place] [phone] PCP - General Family Medicine 09/01/24 documented as of this encounter
--- OUTSIDE RECORDS SUMMARY | 2024-09-30 15:08 | XMS_ITS | Encounter Summary ---
Author Organization [facility] Address [address] [place], [place] [phone] Phone Care Team Providers Care Media Traffic Manager Name Role Phone Provider, Blayne BRIGHT Primary Care Provider [phone] Encounter Details Date Type Department Care Team (Late st Contact Info) Description 03/28/2017 Conversion Encounter [facility] [address] [place], [place] [phone] Social History Tobacco Use Types Packs/Day Years [...] on filedocumented in this encounter Care Teams Media Traffic Manager Relationship Specialty Start Date End Date Provider, MD Blayne [address] [place] [address] PCP - General Pediatrics 03/20/21 11/18/22 documented as of this encounter
--- OUTSIDE RECORDS SUMMARY | 2024-09-30 15:08 | XMS_ITS | Encounter Summary ---
Author Organization [facility] Address [address] [place] [address] Phone Care Team Providers Care Toilet Products Molder Name Role Phone Provider, Blayne BRIGHT Primary Care Provider [phone] Encounter Details Date Type Department Care Team (Late st Contact Info) Description 12/15/2013 Documentation [facility] [place] [address] [place] [address] Family Medicine, Physician [address] [place], [place] [phone] Social History Tobacco Use Types Packs/Day Years [...] on filedocumented in this encounter Care Teams Toilet Products Molder Relationship Specialty Start Date End Date Provider, MD Blayne [address] [place] [address] PCP - General Pediatrics 03/20/21 11/18/22 documented as of this encounter
--- OUTSIDE RECORDS SUMMARY | 2024-09-30 15:08 | XMS_ITS | Encounter Summary ---
Author Organization [facility] Address [address] [place] [address] Phone Care Team Providers Care Metalsmith Name Role Phone Provider, Blayne BRIGHT Primary Care Provider [phone] Encounter Details Date Type Department Care Team (Late st Contact Info) Description 02/26/2011 Documentation [facility] [address] [place] [address] Family Medicine, Physician [address] [place], [place] [phone] Social History Tobacco Use Types Packs/Day Years [...] on filedocumented in this encounter Care Teams Metalsmith Relationship Specialty Start Date End Date Provider, MD Blayne [address] [place] [address] PCP - General Pediatrics 03/20/21 11/18/22 documented as of this encounter
--- OUTSIDE RECORDS SUMMARY | 2024-09-30 15:08 | XMS_ITS | Encounter Summary ---
Author Organization [facility] Address [address] [place] [address] Phone Care Team Providers Care Advertising Executive Name Role Phone Provider, Blayne BRIGHT Primary Care Provider [phone] Encounter Details Date Type Department Care Team (Late st Contact Info) Description 09/26/2012 Documentation [facility] [address] [place] [address] Family Medicine, Physician [address] [place] [phone] Social History Tobacco Use Types Packs/Day Years [...] on filedocumented in this encounter Care Teams Advertising Executive Relationship Specialty Start Date End Date Provider, MD Blayne [address] [place] [address] PCP - General Pediatrics 03/20/21 11/18/22 documented as of this encounter
--- OUTSIDE RECORDS SUMMARY | 2024-09-30 15:08 | XMS_ITS | Encounter Summary ---
Author Organization [facility] Address [address] [place] [address] Phone Care Team Providers Care Print Line Operator Name Role Phone Provider, Blayne BRIGHT Primary Care Provider [phone] Encounter Details Date Type Department Care Team (Late st Contact Info) Description 01/14/2015 Documentation [facility] [place] Medicine [address] [place] [address] Family Medicine, Physician [address] [place], [place] [phone] Social History Tobacco Use Types Packs/Day Years [...] on filedocumented in this encounter Care Teams Print Line Operator Relationship Specialty Start Date End Date Provider, MD Blayne [address] [place] [address] PCP - General Pediatrics 03/20/21 11/18/22 documented as of this encounter
--- OUTSIDE RECORDS SUMMARY | 2024-09-30 15:08 | XMS_ITS | Encounter Summary ---
Author Organization [facility] Address [address] [place] [address] Phone Care Team Providers Care Mannequin Decorator Name Role Phone Provider, Blayne BRIGHT Primary Care Provider [phone] Encounter Details Date Type Department Care Team (Late st Contact Info) Description 12/05/2012 Documentation [facility] [place] [address] [place] [address] Family Medicine, Physician [address] [place], [place] [phone] Social History Tobacco Use Types Packs/Day Years [...] on filedocumented in this encounter Care Teams Mannequin Decorator Relationship Specialty Start Date End Date Provider, MD Blayne [address] [place] [address] PCP - General Pediatrics 03/20/21 11/18/22 documented as of this encounter
--- OUTSIDE RECORDS SUMMARY | 2024-09-30 15:08 | XMS_ITS | Encounter Summary ---
Author Organization [facility] Address [address] [place] [address] Phone Care Team Providers Care Slack Cooper Name Role Phone Provider, Blayne BRIGHT Primary Care Provider [phone] Encounter Details Date Type Department Care Team (Late st Contact Info) Description 01/20/2016 Documentation [facility] Family Medicine [address] [place], [place] [phone] Family Medicine, Physician [address] [place], [place] [phone] Social History Tobacco Use Types Packs/Day Years [...] on filedocumented in this encounter Care Teams Slack Cooper Relationship Specialty Start Date End Date Provider, MD Blayne [address] [place] [address] PCP - General Pediatrics 03/20/21 11/18/22 documented as of this encounter
--- OUTSIDE RECORDS SUMMARY | 2024-09-30 15:08 | XMS_ITS | Clinical Summary ---
Author Organization [facility] Address [address] [place] [address] Phone Care Team Providers Care Pie Topper Name Role Phone Unavailable Primary Care Provider Unavailabl e Allergies No known active allergies Medications No known medications Active Problems Problem Noted Date Diagnosed Date Dysmenorrhea 08/14/2018 Immunizations Immunization Administration Dates Next Due DTaP 5 08/30/2005, [...] of *Heart Disease, Family history of *Sudden /SC under 55, No family history of Developmental dislocation of hip, No family history of ADD/ADHD, Family history of Diabetes mellitus, Family history of Sudden /SC under 55, Family history of Obesity, No [...] Completed 07/10/2017, 013 Procedures * Due to [employer] law, this organization might not be sharing sensitive test results. Procedure Name Priority Date/Time Associated Diagnosis Comments CHLAMYDIA AND GONORRHEA, AMPLIFIED Routine 08/14/2018 2:04 PM EST Encounter for well child visit at 18 years of age from Last 3 Months or Most Recently Relevant to Health Maintenance Results * Due to [place] [employer] law, this organization might not be sharing sensitive test results. * Chlamydia and Gonorrhoea, Amplified (08/14/2018 2:04 PM EST) Chlamydia Trachomatis, DNA Probe NEGATIVE (NEG) [facility] Comment: No Chlamydia Trachomatis RNA detected in this patient's sample ? (REFERENCE RANGE/NORMAL VALUE: NOT DETECTED) ? Note: This test uses utility system repairer- mediated amplification method to detect rRNA from C. Trachomatis URINE GC AMP PROBE NEGATIVE (NEG) [facility] Comment: No Neisseria Gonorrhoeae RNA detected in this patient's sample ? (REFERENCE RANGE/NORMAL VALUE: NOT DETECTED) ? NOTE: This test uses utility system repairer-mediated amplification method to detect rRNA from N.Gonorrhoeae. [...] without risk of sexual abuse. Consult the [facility] if needed. Contact phone number . Therapeutic failure or success cannot be determined with the Aptima Combo2 assay since nucleic acid may persist following appropriate antimicrobial therapy. The Centers for Disease Control and Prevention (CDC) recommends confirmatory retesting using culture or a different nucleic acid amplification test when positive results occur, if indicated. Testing performed or reported by [facility], a Service of [facility], [address] [place] [address] [facility] [id number] Mitzi Phan MD, Feather Cutting Machine Feeder Urine 08/14/2018 2:04 PM EST 08/14/2018 9:13 PM EST us Enzo Mccain MD LAB MICROBIOLOGY - GENERAL ORD ERABLES Final Result [facility] from Last 3 Months or Most Recently Relevant to Health Maintenance Insurance [facility] NON PCC
--- OUTSIDE RECORDS SUMMARY | 2024-09-30 15:08 | XMS_ITS | Encounter Summary ---
Author Organization [facility] Address [address] [place] [address] Phone Care Team Providers Care Blasting Coal Miner Name Role Phone Provider, Blayne BRIGHT Primary Care Provider [phone] Encounter Details Date Type Department Care Team (Late st Contact Info) Description 09/26/2012 Documentation [facility] [place] [address] [place] [address] Family Medicine, Physician [address] [place], [place] [phone] Social History Tobacco Use Types Packs/Day Years [...] on filedocumented in this encounter Care Teams Blasting Coal Miner Relationship Specialty Start Date End Date Provider, MD Blayne [address] [place] [address] PCP - General Pediatrics 03/20/21 11/18/22 documented as of this encounter
--- OUTSIDE RECORDS SUMMARY | 2024-09-30 15:08 | XMS_ITS | Encounter Summary ---
Author Organization [facility] Address [address] [place] [address] Phone Care Team Providers Care Welding Estimator Name Role Phone Provider, Blayne BRIGHT Primary Care Provider [phone] Encounter Details Date Type Department Care Team (Late st Contact Info) Description 12/05/2012 Documentation [facility] Family Medicine [address] [place] [address] Family Medicine, Physician [address] [place], [place] [phone] Social History Tobacco Use Types Packs/Day Years [...] on filedocumented in this encounter Care Teams Welding Estimator Relationship Specialty Start Date End Date Provider, MD Blayne [address] [place] [address] PCP - General Pediatrics 03/20/21 11/18/22 documented as of this encounter
--- OUTSIDE RECORDS SUMMARY | 2024-09-30 15:08 | XMS_ITS | Encounter Summary ---
Author Organization [facility] Address [address] [place] [address] Phone Care Team Providers Care Surgical Rn Name Role Phone Provider, Blayne BRIGHT Primary Care Provider [phone] Encounter Details Date Type Department Care Team (Late st Contact Info) Description 01/14/2015 Documentation [facility] Family Medicine [address] [place] [address] Family Medicine, Physician [address] [place], [place] [phone] Social History Tobacco Use Types Packs/Day Years [...] on filedocumented in this encounter Care Teams Surgical Rn Relationship Specialty Start Date End Date Provider, MD Blayne [address] [place] [address] PCP - General Pediatrics 03/20/21 11/18/22 documented as of this encounter
--- OUTSIDE RECORDS SUMMARY | 2024-09-30 15:08 | XMS_ITS | Encounter Summary ---
Author Organization [facility] Address [address] [place] [address] Phone Care Team Providers Care Service Unit Operator Name Role Phone Provider, Blayne BRIGHT Primary Care Provider Encounter Details Date Type Department Care Team (Late st Contact Info) Description 09/26/2012 Documentation [facility] Family Medicine [address] [place] [address] Family Medicine, Physician [address] [place], [place] [phone] Social History Tobacco Use Types Packs/Day Years [...] on filedocumented in this encounter Care Teams Service Unit Operator Relationship Specialty Start Date End Date Provider, MD Blayne [address] [place] [address] PCP - General Pediatrics 03/20/21 11/18/22 documented as of this encounter
--- OUTSIDE RECORDS SUMMARY | 2024-09-30 15:08 | XMS_ITS | Encounter Summary ---
Author Organization [facility] Address [address] [place] [address] Phone Care Team Providers Care Conventions Assistant Name Role Phone Provider, Blayne BRIGHT Primary Care Provider [phone] Encounter Details Date Type Department Care Team (Late st Contact Info) Description 12/15/2013 Documentation [facility] Family Medicine [address] [place] [address] Family Medicine, Physician [address] [place], [place] [phone] Social History Tobacco Use Types Packs/Day Years [...] on filedocumented in this encounter Care Teams Conventions Assistant Relationship Specialty Start Date End Date Provider, MD Blayne [address] [place] [address] PCP - General Pediatrics 03/20/21 11/18/22 documented as of this encounter
--- OUTSIDE RECORDS SUMMARY | 2024-09-30 15:08 | XMS_ITS | Encounter Summary ---
Author Organization [facility] Address [address] [place] [address] Phone Care Team Providers Care Events Associate Name Role Phone Provider, Blayne BRIGHT Primary Care Provider [phone] Encounter Details Date Type Department Care Team (Late st Contact Info) Description 01/20/2016 Documentation [facility] [place] Family Medicine [address] [place], [place] [phone] Family Medicine, Physician [address] [place], [place] [phone] Social History Tobacco Use Types Packs/Day Years [...] on filedocumented in this encounter Care Teams Events Associate Relationship Specialty Start Date End Date Provider, MD Blayne [address] [place] [address] PCP - General Pediatrics 03/20/21 11/18/22 documented as of this encounter
--- OUTSIDE RECORDS SUMMARY | 2024-09-30 15:08 | XMS_ITS | Encounter Summary ---
Author Organization [facility] Address [address] [place] [address] Phone Care Team Providers Care Rock Crusher Operator Name Role Phone Provider, Blayne BRIGHT Primary Care Provider [phone] Encounter Details Date Type Department Care Team (Late st Contact Info) Description 04/11/2011 Documentation [facility] Family Medicine [address] [place] [address] Family Medicine, Physician [address], [place] [phone] Social History Tobacco Use Types Packs/Day Years [...] on filedocumented in this encounter Care Teams Rock Crusher Operator Relationship Specialty Start Date End Date Provider, MD Blayne [address] [place] [address] PCP - General Pediatrics 03/20/21 11/18/22 documented as of this encounter
== END ==
LOC: HO.CARD 15:01
PROVIDERS: PCP General Practice; Visit Provider General Practice
DX: R07.9 Chest pain, unspecified (principal)
CPT/HCPCS: 93306

== ENCOUNTER → 2024-09-30 15:05 | Outpatient (BNV) | payer OTHER, MEDICAID, SELFPAY | PROVIDERS: PCP General Practice; Visit Provider Internal Medicine | DX: R07.9 Chest pain, unspecified (principal) | CPT/HCPCS: 93306 ==

== ENCOUNTER 2024-11-29 13:51 | Emergency (ER) | payer OTHER, SELFPAY ==
--- NOTE | ~2024-11-29 | CT_ITS ---
CLINICAL HISTORY: left sided headache CTA HEAD, bolus contrast injection. 3D reconstructions and MPRs:: Comparison: Right Carotid Siphon: Normal Right Anterior Cerebral Artery: A1 and A2 segments are unremarkable. There is peripheral cortical enhancement. Right Middle Cerebral Artery: M1 and M2 segments are unremarkable. There is peripheral cortical enhancement. Right Posterior Cerebral Artery: P1 and P2 segments are unremarkable. There is peripheral enhancement Left Carotid Siphon: Normal Left Anterior Cerebral Artery: A1 and A2 segments are unremarkable. There is peripheral cortical enhancement. Left Middle Cerebral Artery: M1 and M2 segments are unremarkable. There is peripheral cortical enhancement. Left Posterior Cerebral Artery: P1 and P2 segments are unremarkable. There is peripheral cortical enhancement. Basilar Artery: Normal Venous drainage: Normal Impression: No signs of aneurysm. No stenosis. No large vessel occlusion. No signs of arterial venous malformation. CTA Neck , Bolus contrast injection, 3D reconstructions and MPRs: Comparison: None Findings: Soft tissues of the neck are unremarkable Superior aorta and branch vessels are unremarkable Right carotid: No stenosis (NASCET) Right vertebral: No stenosis Left Carotid: No stenosis(NASCET) Left Vertebral: No stenosis Impression: No stenosis No aneurysm or dissection This document has been electronically signed by: Rey Jasso MD on 11/29/2024 17:23:03
--- NOTE | ~2024-11-29 | CT_ITS ---
CLINICAL HISTORY: acute onset headache L sided, facial numbness CT head without contrast Comparison: None Findings: No intra-axial mass, midline shift, hydrocephalus, or acute hemorrhage. No significant atrophy-like change or white matter disease. The visualized paranasal sinuses and mastoid air cells are normal. The orbits are unremarkable. No skull fracture. IMPRESSION: 1. No acute intracranial findings. This document has been electronically signed by: Raúl Whiting MD on 11/29/2024 14:56:51
[2024-11-29 14:10] VITALS: BP 139/92; PULSE 89; RESP 16; TEMP 37.1; O2SAT 99; BMI 22.4
--- NOTE | 2024-11-29 14:11 | ED_ITS ---
HPI - Headache General Chief Complaint: Neuro Symptoms/Deficit Stated Complaint: headache, facial numbness Time Seen by Provider: 11/29/24 14:51 Source: patient and RN notes reviewed Mode of arrival: ambulatory Limitations: no limitations History of Present Illness ED Provider: Shiela Pepe PA-C HPI Narrative: This is a 17 who presents to the ER with concerns for episode of popping sensation in her head which occurred yesterday. Patient reports that while she was walk around 2 4 yesterday she suddenly felt a popping sensation inside of her head and felt a warm sensation trickle down the left side of her face. She states that she became photophobic at that time. She states that she then developed a headache. Patient states that shortly after while she was driving home she felt a numbness sensation on the left side of her face which lasted several sec and resolved on its own. She states that since this episode which occurred yesterday she has had intermittent headaches that wax and wane in severity but do not fully resolve. She denies history of similar symptoms in the past. Mother reports history of aneurysms that run in the family. Also states that her son was born with a congenital heart disorder that requires him to have a pacemaker - this was placed when he was 4 years old. Patient reports that she has been experiencing palpitations which she has been seen by a fiber worker 4, states that she ?assumes that everything was okay as she has not had any follow-up . She reports that her last menses is due now, states that she was several days late. Does report possible chance of . She denies any current photophobia, numbness, tingling, weakness, chest pain, shortness of breath, abdominal pain, nausea, vomiting or diarrhea. No other complaints or concerns at this time. MD elicited complaint: headache Onset description: suddenly Severity: moderate Quality & Timing: aching Exacerbating factors: none Relieving factors: nothing Context: occurred at rest Treatments prior to arrival: none Related Data Allergies Allergy/AdvReac Type Severity Reaction Status Date / Time No Known Allergies Allergy Verified 11/29/24 14:14 Review of Systems 2 Review of Systems: Yes all other systems are reviewed and are negative Constitutional: Constitutional: Reports as per HPI, Denies body ache(s), Denies chills and Denies fever(s) Eyes: Eyes: Reports as per HPI, Denies change in vision, Denies eye discharge and Denies loss of vision ENT: Reports system reviewed and no additional complaints, except as documented, Reports as per HPI, Reports Normal hearing present and Denies facial pain Cardiovascular: Cardiovascular: Reports as per HPI and Denies chest pain Respiratory: Respiratory: Reports as per HPI and Denies cough Gastrointestinal: Gastrointestinal: Reports as per HPI, Reports no additional gastrointestinal complaints, Denies abdominal pain, Denies diarrhea, Denies nausea and Denies vomiting Genitourinary: Genitourinary: Reports no additional female genitourinary complaints and Reports as per HPI Musculoskeletal: Musculoskeletal: Reports no additional musculoskeletal complaints, Reports as per HPI, Reports numbness (Resolved) and Reports tingling (Resolved) Integumentary/Breasts: Skin/Breast: Reports system reviewed and no additional complaints, except as docu, Reports as per HPI, Reports erythema, Denies rash and Denies wounds Neurologic: Reports Normal hearing present, Denies loss of vision, Reports numbness (Resolved) and Reports tingling (Resolved) Psychiatric: Psychiatric: Reports no additional psychiatric complaints and Reports as per HPI Endocrine: Endocrine: Reports no additional endocrine complaints and Reports as per HPI Hematologic/Lymphatic: Hematologic/Lymphatic: Reports no additional hematologic/lymphatic complaints and Reports as per HPI Allergic/Immunologic: Allergic/Immunologic: Reports no additional allergic/immunologic complaints and Reports as per HPI PMF Social History Social History Smoked in Last 30 Days: No Use of substances other than those prescribed or required for medical reasons: No Advance Directives: No Advance Directives Information Provided: Yes Do you have a plan to hurt others: No Plan Patient : No Physical Exam 2 Vital Signs: Vital Signs: Last Vital Signs Temp 98.4 F 11/29/24 18:11 Pulse 73 11/29/24 18:11 Resp 16 11/29/24 18:11 BP 119/62 11/29/24 18:11 Pulse Ox 98 11/29/24 18:11 O2 Del Method Room Air 11/29/24 18:11 BMI result Body Mass Index 22.4 Const: General: cooperative, comfortable and no acute distress O rientation/consciousness: patient oriented x3 Limitations: no limitations HEENT: Head: Yes normal to inspection, Yes normocephalic and Yes atraumatic Ears: hearing grossly normal bilaterally General nose exam: Normal external nose present Face and sinus: Yes normal facial exam Mouth: Normal oral and palatal mucosa present, oropharynx normal and moist mucous membranes Throat: Yes posterior oropharynx normal Eyes: General: appearance normal, both eyes and all related structures E yelids: Yes eyelids normal Conjunctivae: conjunctivae normal Sclerae: s clerae normal Pupils: Equal, round and reactive pupils present EOM: EOMs intact bilaterally Neck: Neck: Yes normal visual inspection, Yes full ROM and Yes no lymphadenopathy Lymphatic: no lymphadenopathy noted Chest: Chest palpation & inspection: normal inspection of the chest Resp: Effort & Inspection: normal respiratory effort and able to speak in complete sentences Auscultation: clear to auscultation bilaterally Cardio: Rate: regular rate Rhythm: regular rhythm Heart sounds: S1 normal heart sound present and S2 normal heart sound present GI: Inspection: Yes normal to inspection Skin: General skin exam: no rashes or lesions noted Trauma: no lacerations or abrasions Wounds: no wounds Neuro: General: patient oriented x3 and moves all extremities Cranial nerves: Yes CN's II-XII intact bilaterally, Yes Equal, round and reactive pupils present and Yes Normal hearing present Cognition (Neuro): normal cognition Motor exam (neuro): 5/5 motor strength present throughout and Pronator motor function not present Extrem: General: Yes normal to inspection Right upper extremity: normal to inspection Left upper extremity: normal to inspection Left lower extremity: normal to inspection Course Course Course Narrative: This is an RME performed by Gayatri Izaguirre CNP: Additional HPI, ROS, PE not included below will be deferred to primary provider. Patient is a 24-year-old female who presents emergency department for evaluation, ststes yesterday she felt a popping/ snapping sensation to the left side of her head yesterday, abrupt onset [place] the [place], approximately 20 minutes later developed a rushing of blood sensation to the left side of the face lasting a few seconds. Now has a persistent left sided headache. No focal neurological deficits. NIH score 0. Plan: CT head Reevaluation(s) Reevaluation #1: Labs revealing no acute findings. TSH within normal limits. She is not , CT head and neck as well as dry CT unremarkable. I discussed overall workup with patient and mother at bedside. Her workup today was all reassuring. She will follow-up with her primary care physician outpatient. Given strict return precautions. She understands and agrees with plan. Patient stable for discharge. Time: 18:13 Medications Administered Discontinued Medications Generic Name Dose Route Start Last Admin Trade Name Chacha PRN Reason Stop Dose Admin Iohexol 100 ml 11/29/24 16:31 11/29/24 16:31 Iohexol 350 Mg/Ml 100 Ml Infus..Btl IV 11/29/24 16:32 70 ml ONCE ONE Administration Medical Decision Making Medical Decision Making [facility] Narrative: This is a 24-year-old female who presents emergency department with concerns for popping sensation in the top of her head with ongoing headaches, since yesterday. On arrival, mildly hypertensive at 139/92, all other vital signs within normal limits. She is speaking in full sentences under no acute distress. She is neurologically intact. She has an NIH score of 0. Head CT was obtained which revealed no acute findings. Mother reports history of aneurysms that run in the family. Also endorses cardiac issues, brother has a pacemaker. Patient does report palpitations which he has been worked up for in the past by a fiber worker. Differential diagnoses include ICH, migraine headache, tension headache. Will obtain labs, EKG, and CT angio to rule out any intracranial abnormalities. Differential Diagnosis Differential Diagnoses: The differential diagnosis associated with the presentation includes See above Lab Data [facility] Lab Attestation statement: I reviewed the patient's lab results. No leukocytosis, stable H&H, chemistry with no significant electrolyte derangement. No evidence of GRADY. Troponin less than 2.7, TSH within normal limits. She is not 11/29/24 15:25 11/29/24 15:25 Labs: Lab Results 11/29/24 11/29/24 Range/Units 15:25 15:26 WBC 7.6 (4.8-10.8) X10*3/uL RBC 4.67 (4.20-5.50) X10*6/uL Hgb 14.0 (12.0-16.0) g/dl Hct 40.4 (37.0-47.0) % MCV 86.5 (80.0-98.0) fL MCH 30.0 (27.0-33.0) pg MCHC 34.7 (31.0-35.0) g/dl RDW 12.7 (11.0-16.0) % Plt Count 215 (160-400) X10*3/uL MPV 10.8 (9.4-12.3) fL Immature Gran % (Auto) 0.4 (0.0-0.4) % Neut % (Auto) 61.6 (45-73) % Lymph % (Auto) 28.6 (20-40) % [place] % (Auto) 7.1 (2-11) % Eos % (Auto) 1.6 (0-4) % Baso % (Auto) 0.7 (0-2) % Lymph # (Auto) 2.2 (1.2-4.9) X10*3/uL [place] # (Auto) 0.5 (0.1-1.2) X10*3/uL Eos # (Auto) 0.1 (0.0-0.4) X10*3/uL Baso # (Auto) 0.1 (0.0-0.2) X10*3/uL Abs Immat Gran (auto) 0.03 (0.00-0.03) X10*3/uL Absolute Neuts (auto) 4.7 (2.0-8.3) x10*3/uL Absolute Nucleated RBC 0.000 (0.0-0.012) X10*3/uL Nucleated RBC % (auto) 0.0 (0.0-0.2) /100WBC Hold Blue Top SEE NOTE Sodium 139 (135-145) mmol/L Potassium 3.9 (3.3-5.1) mmol/L Chloride 107 (96-108) mmol/L Carbon Dioxide 21 L (22-29) mmol/L Anion Gap 15 (12-20) BUN 15 (9-16) mg/dL Creatinine 0.70 (0.5-1.4) mg/dL Estim Creat Clear Calc 103.4 Estimated GFR > 60 Random Glucose 92 (60-115) mg/dL Calcium 9.1 (8.4-10.2) mg/dL Magnesium 1.6 (1.6-2.6) mg/dL Total Bilirubin 1.0 (0.0-1.0) mg/dL Direct Bilirubin 0.3 (0.0-0.5) mg/dL AST 21 (5-31) U/L ALT 27 (0-31) U/L Alkaline Phosphatase 58 (39-117) U/L Troponin I High Sens < 2.7 (<3.5-17.0) ng/L Total Protein 7.2 (6.5-8.0) g/dL Albumin 4.1 (3.5-5.0) g/dL TSH 2.04 (0.32-4.0) uIU/mL Beta HCG, Quant < 2 mIU/mL Independent Interpretation I performed an independent interpretation of an: EKG Interpretation: EKG normal sinus rhythm with sinus arrhythmia at a ventricular rate of 70 beats per minute, QT QTC 404/436, no ST elevation or depression. Radiology Impression Discussion of test interpretation with radiology: I have reviewed the radiologist's reading. Radiologist Impression: CTA HEAD, bolus contrast injection. 3D reconstructions and MPRs:: Comparison: Right Carotid Siphon: Normal Right Anterior Cerebral Artery: A1 and A2 segments are unremarkable. There is peripheral cortical enhancement. Right Middle Cerebral Artery: M1 and M2 segments are unremarkable. There is peripheral cortical enhancement. Right Posterior Cerebral Artery: P1 and P2 segments are unremarkable. There is peripheral enhancement Left Carotid Siphon: Normal Left Anterior Cerebral Artery: A1 and A2 segments are unremarkable. There is peripheral cortical enhancement. Left Middle Cerebral Artery: M1 and M2 segments are unremarkable. There is peripheral cortical enhancement. Left Posterior Cerebral Artery: P1 and P2 segments are unremarkable. There is peripheral cortical enhancement. Basilar Artery: Normal Venous drainage: Normal Impression: No signs of aneurysm. No stenosis. No large vessel occlusion. No signs of arterial venous malformation. CTA Neck , Bolus contrast injection, 3D reconstructions and MPRs: Comparison: None Findings: Soft tissues of the neck are unremarkable Superior aorta and branch vessels are unremarkable Right carotid: No stenosis (NASCET) Right vertebral: No stenosis Left Carotid: No stenosis(NASCET) Left Vertebral: No stenosis Impression: No stenosis No aneurysm or dissection This document has been electronically signed by: Rey Jasso MD on 11/29/2024 17:23:03 Dictated By: Rey Jasso MD CLINICAL HISTORY: acute onset headache L sided, facial numbness CT head without contrast Comparison: None Findings: No intra-axial mass, midline shift, hydrocephalus, or acute hemorrhage. No significant atrophy-like change or white matter disease. The visualized paranasal sinuses and mastoid air cells are normal. The orbits are unremarkable. No skull fracture. IMPRESSION: 1. No acute intracranial findings. This document has been electronically signed by: Raúl Whiting MD on 11/29/2024 14:56:51 Dictated By: Raúl Whiting MD Discharge Plan Discharge Clinical Impression: Headache Patient Disposition: Home, Self-Care Instructions: Acute Headache (ED) Additional Instructions: You were seen in the emergency department in your workup today was reassuring. Please drink plenty of fluids get plenty of rest. You may take Tylenol and or ibuprofen as needed for pain and symptoms. Your workup today was reassuring. We obtain both a head CT and CTA of your head and neck which did not reveal any abnormalities. Your blood work was reassuring. Your thyroid is within normal range. Please follow-up with your primary care physician regarding this visit. If any new or worsening symptoms occur including but not limited to severe headache, dizziness, chest pain, shortness of breath, please seek emergent care. Interventions: ED Discharge Assessment Last Done: 11/29/24 18:11 Discharge Date/Time: 11/29/24 18:12 Print Language: Spanish
--- NOTE | 2024-11-29 15:10 | ECG_ITS ---
Test Reason : palpatations Blood Pressure : */* mmHG Vent. Rate : 70 BPM Atrial Rate : 70 BPM P-R Int : 144 ms QRS Dur : 104 ms QT Int : 404 ms P-R-T Axes : 63 73 46 degrees QTcB Int : 436 ms Normal sinus rhythm with sinus arrhythmia Normal ECG No previous ECGs available Referred By: Shiela Pepe Electronically Signed By: GHULAM LIVINGSTON
[2024-11-29 15:34] LABS: MANUAL DIFF FLAG NO
[2024-11-29 15:36] LABS: Basophils Absolute Auto 0.1 X10*3/uL (0.0-0.2); Basophils Percent Auto 0.7 % (0-2); Eosinophils Absolute Auto 0.1 X10*3/uL (0.0-0.4); Eosinophils Percent Auto 1.6 % (0-4); Hematocrit 40.4 % (37.0-47.0); Imm Gran Abs Auto 0.03 X10*3/uL (0.00-0.03); Imm Gran Pct Auto 0.4 % (0.0-0.4); Lymphocytes Absolute Auto 2.2 X10*3/uL (1.2-4.9); Lymphocytes Percent Auto 28.6 % (20-40); Mean Corpuscular HGB Conc 34.7 g/dl (31.0-35.0); Mean Corpuscular Volume 86.5 fL (80.0-98.0); Mean Platelet Volume 10.8 fL (9.4-12.3); Monocytes Absolute Auto 0.5 X10*3/uL (0.1-1.2); Monocytes Percent Auto 7.1 % (2-11); Neutrophils Absolute Auto 4.7 x10*3/uL (2.0-8.3); Neutrophils Percent Auto 61.6 % (45-73); Platelet Count 215 X10*3/uL (160-400); Red Blood Count 4.67 X10*6/uL (4.20-5.50); Red Cell Distribution Width 12.7 % (11.0-16.0); White Blood Count 7.6 X10*3/uL (4.8-10.8)
[2024-11-29 15:51] VITALS: BP 108/57; PULSE 73; RESP 16; TEMP 36.7; O2SAT 99
[2024-11-29 16:10] LABS: Alanine Aminotransferase 27 U/L (0-31); Albumin Level 4.1 g/dL (3.5-5.0); Anion Gap 15 (12-20); Aspartate Amino Transferase 21 U/L (5-31); Bilirubin Direct 0.3 mg/dL (0.0-0.5); Blood Urea Nitrogen 15 mg/dL (9-16); Calcium 9.1 mg/dL (8.4-10.2); Carbon Dioxide 21 mmol/L (22-29); Chloride 107 mmol/L (96-108); Creatinine Clr Calc Pharmacy 103.4; Estimated Glomerular Filt Rate > 60; Glucose Random 92 mg/dL (60-115); HCG Quantitative < 2 mIU/mL; Magnesium 1.6 mg/dL (1.6-2.6); Potassium 3.9 mmol/L (3.3-5.1); Sodium 139 mmol/L (135-145); Total Protein 7.2 g/dL (6.5-8.0); Troponin-I High Sensitivity < 2.7 ng/L (<3.5-17.0)
[2024-11-29 16:27] LABS: TSH reflex Free T4 2.04 uIU/mL (0.32-4.0)
[2024-11-29] MEDS: iohexoL 350 MG/ML 100 ML INFUS..BTL IV (16:31)
[2024-11-29 16:32] LABS: Alkaline Phosphatase 58 U/L (39-117)
[2024-11-29 18:01] VITALS: BP 119/62; PULSE 73; RESP 16; TEMP 36.9; O2SAT 98
[2024-11-29 18:11] VITALS: BP 119/62; PULSE 73; RESP 16; TEMP 36.9; O2SAT 98
== END 2024-11-29 18:12 | disposition home or self-care (01) ==
PROVIDERS: Physician Assistant Medical; Emergency Provider Emergency Medicine Emergency Medical Services; PCP General Practice
DX: R51.9 Headache, unspecified (principal)
CPT/HCPCS: 36415; 70450; 70496; 70498; 80048; 80076; 83735; 84443; 84484; 84702; 85025; 93005; 99284; 99285; Q9967

== ENCOUNTER → 2024-11-29 14:15 | Outpatient (BNV) | payer OTHER, SELFPAY | PROVIDERS: Emergency Provider Emergency Medicine Emergency Medical Services; PCP General Practice; Visit Provider Radiology Diagnostic Radiology | DX: R51.9 Headache, unspecified (principal); R29.810 Facial weakness | CPT/HCPCS: 70450; 70496; 70498 ==

== ENCOUNTER → 2024-11-29 15:10 | Outpatient (BNV) | payer OTHER, SELFPAY | PROVIDERS: Emergency Provider Emergency Medicine Emergency Medical Services; PCP General Practice; Visit Provider Internal Medicine | DX: R00.2 Palpitations (principal) | CPT/HCPCS: 93010 ==

== ENCOUNTER 2025-01-07 13:15 | Outpatient (REF) | payer OTHER, SELFPAY ==
--- OUTSIDE RECORDS SUMMARY | 2025-01-07 13:19 | XMS_ITS | Clinical Summary ---
Author Organization [employer] Address [address] [facility] 7 [place] [address] Care Team Providers [facility] Administrative Assistant Name Role Phone Cari Iqbal MD Primary Care Provider [phone] Allergies No known active allergies Medications ibuprofen 600 MG tabletIndication s:Chronic migraine with aura without status migrainosus, not intractable Take 1 tablet (600 mg) by mouth Once daily for 10 days. For headache. 10 tablet 12/11/2024 12/22/19 Active Problems Problem Noted Date Diagnosed Date Dysmenorrhea 08/14/2018 Encounters Date Type Department Care Team Description 01/06/2025 Telephone [facility] [address] [place] [phone] Cari Iqbal MD Lab Orders 12/11/2024 3:15 PM EDT Office Visit [facility] [address] [place] [phone] Barrera Kowalski CNP Chronic migraine with aura without status migrainosus, not intractable (Primary Dx) 12/11/2024 Travel 12/09/[address] [address] Shira Knapp MA Chart Prep 12/08/[address] [address] Cari Iqbal MD ER Follow-up; Nurse Triage 11/29/2024 Orders Only [facility] External Provider, [facility] from Last 3 Months Immunizations Immunization Administration Dates Next Due DTaP, 5 pertussis antigens 08/30/2005,,2001,10/13,2001 HPV, Quadrivalent 12/14/2013,12/04/2012,09/25/19 13 Hep A, ped/adol, 2 dose 01/13/2015,12/14/2013 Hep B, Adolescent or Pediatric 02/16/2002,2000,2001 Hib (PRP-T) 08/13/2002, 2,2001,07/08 IPV 08/30/2005, 2,2001,07/08 Influenza injectable quadriv alent preservative free 08/14/2018,07/10/2017,12/14/2013 Influenza, IIV3, injectable 05/26/2009 Influenza, Split (incl. sherita fied surface antigen) 07/17/2010 Influenza, live, intranasal 09/25/2012 MMR 08/30/2005,05/11/2002 Meningococcal MCV4P ACYW-135 07/10/2017,09/25/19 13 Novel [id number], all formulations 05/26/2009 Pneumococcal Conjugate PCV 7 [...] more drinks on one occasion? 0 09/01/2024 Depression Answer Date Recorded Patient Health Questionnaire-9 Score 0 12/11/2024 Patient Health Questionnaire-9 Score 0 12/11/2024 Last PHQ-9: Questionnaire Data Not on file 0 12/11/2024 Housing Stability Answer Date Recorded What is [...] off services in your home? No 09/01/2024 Depression Answer Date Recorded Patient Health Questionnaire-2 Score 0 12/11/2024 Internet Access Answer Date Recorded Internet Access [...] Sign Reading Time Taken Comments Blood Pressure 110/62 12/11/2024 3:04 PM EDT Pulse 80 12/11/2024 3:04 PM EDT Temperature 36.5 ??C (97.7 ??F) 09/01/2024 9:52 AM ES T Respiratory Rate 16 12/11/2024 3:04 PM EDT Oxygen Saturation - - Inhaled Oxygen Concentration - - Weight 58.1 kg (128 lb) 12/11/2024 3:04 PM EDT Height 160 cm (5' 3 ) 12/11/2024 3:04 PM EDT Body Mass Index 22.67 12/11/2024 3:04 PM EDT Plan of Treatment Health Maintenance Due Date Last Done Comments Family Planning (PISQ) 2016 Meningococcal B Vaccine (1 of 2 - Standard) 2017 Pap Smear 2022 DTaP/Tdap/Td Vaccines (7 - Td or Tdap) 09/25/2022 09/25/2012, 08/30/2005, 11/12/2002, Additional history exists COVID-19 Vaccine ( season) 2024 10/23/2021, 03/29/2021, 03/08/2021 Influenza Vaccine (#1) 2024 9, 07/10/2017, 12/14/2013, Additional history exists Alcohol/Substance Use Screening 09/01/2025 09/01/2024 Chlamydia and Gonorrhea Screening 09/01/2025 09/01/2024 SDOH Screening 09/01/2025 09/01/2024 Depression Screening 12/11/2025 12/11/2024, 12/12/19 25 Disability Screening 12/11/2025 12/11/2024 Tobacco Screening 12/11/2025 12/11/2024 Zoster Vaccines (1 of 2) 2051 RSV [...] Additional history exists IPV Vaccines Completed 08/30/2005, 0 01/2002, 2001, Additional history exists HPV Vaccines [...] Procedure Name Priority Date/Time Associated Diagnosis Comments CTA HEAD NECK W AND WO CONTRAST Routine 11/29/2024 5:23 PM EDT HOLD LT BLUE - POSSIBLE COAG Routine 11/29/2024 3:26 PM EDT TSH W/REFLEX TO FT4 Routine 11/29/2024 3 :25 PM EDT HCG, TOTAL, QN Routine 11/29/2024 3:25 PM EDT HIGH SENSITIVITY TROPONIN I Routine 11/29/2024 3:25 PM EDT MAGNESIUM Routine 11/29/2024 3:25 PM EDT BASIC METABOLIC PANEL Routine 11/29/2024 3:25 PM EDT HEPATIC FUNCTION PANEL Routine 11/29/2024 3:25 PM EDT CBC WITH AUTO DIFFERENTIAL Routine 11/29/2024 3:[address] HEAD WO CONTRAST Routine 11/29/2024 2 :56 PM EDT HEPATITIS C AB W/REFL TO HCV RNA, QN, PCR Routine 09/01/2024 10:46 AM EST Routine screening for STI (sexually transmitted infection) HIV 1/2 ANTIGEN/ANTIBODY, FOURTH GENERATION W/RFL Routine 09/01/2024 10:46 AM EST Routine screening for STI (sexually transmitted infection) CHLAMYDIA/N. GONORRHOEAE RNA, TMA, UROGENITAL Routine 09/01/2024 10:46 AM EST Routine screening for STI (sexually transmitted infection) from Last 3 Months or Most Recently Relevant to Health Maintenance Results * CTA Head Neck w/ and w/o Contrast (11/29/2024 5:23 PM EDT) Anatomical Region Laterality Modality Head, Neck Computed Tomogra phy 11/29/2024 5:23 PM EDT Narrative 11/29/2024 5:24 PM EDT ? [facility] ?[address] ?[place] [address] ? CT Scan Report ? Signed ? Patient: Yon,Miri ?MR#: [id number] ? : 2000 ?Acct:[id number] ? Age/Sex: 24 / F ?ADM Date: 11/29/24 ? Loc: HO.ED ? Attending Dr: ? Ordering Physician: Shiela Bliss ?? Date of Service: 11/29/24 ?? Procedure(s): CT angio head neck ?? Accession Number(s): [id number] ? cc: Cari Iqbal; Shiela Bliss ? Report Number: ?? [id number]: Total DLP = ??671.00 mGy-cm ? CLINICAL HISTORY: left sided headache ? CTA HEAD, bolus contrast injection. 3D reconstructions and MPRs:: ? Comparison: ?? Right Carotid Siphon: Normal ?? Right Anterior Cerebral Artery: A1 and A2 segments are unremarkable. There ?? is peripheral cortical enhancement. ?? Right Middle Cerebral Artery: M1 and M2 segments are unremarkable. There ?? is peripheral cortical enhancement. ?? Right Posterior Cerebral Artery: P1 and P2 segments are unremarkable. ?? There is peripheral enhancement ?? Left Carotid Siphon: Normal ?? Left Anterior Cerebral Artery: A1 and A2 segments are unremarkable. There ?? is peripheral cortical enhancement. ?? Left Middle Cerebral Artery: M1 and M2 segments are unremarkable. There is ?? peripheral cortical enhancement. ?? Left Posterior Cerebral Artery: P1 and P2 segments are unremarkable. There ?? is peripheral cortical enhancement. ?? Basilar Artery: Normal ?? Venous drainage: Normal ?? Impression: ?? No signs of aneurysm. No stenosis. No large vessel occlusion. ?? No signs of arterial venous malformation. ? CTA Neck , Bolus contrast injection, 3D reconstructions and MPRs: ? Comparison: None ?? Findings: ?? Soft tissues of the neck are unremarkable ?? Superior aorta and branch vessels are unremarkable ?? Right carotid: No stenosis (NASCET) ?? Right vertebral: No stenosis ?? Left Carotid: No stenosis(NASCET) ?? Left Vertebral: No stenosis ?? Impression: ?? No stenosis ?? No aneurysm or dissection ? This document has been electronically signed by: Rey Jasso MD on ?? 11/29/2024 17:23:03 ? Dictated By: ?Rey Jasso MD ? Signed By: ?<Electronically signed by Rey Jasso MD in OV> ?11/29/24 1723 ? DD/ 1723 ? TD/TT: 11/29/24 1723 ? Specimen Accessioner: ? Procedure Note Donotuseinterpreter, Image - 11/29/[address] [address] [address] Scan Report Signed Patient: Lori Marvin#: [id number] : 2000Acct:[id number] Age/Sex: 24 / FADM Date: 11/29/24 Loc: HO.ED Attending Dr: Ordering Physician: Shiela Bliss Date of Service: 11/29/24 Procedure(s): CT angio head neck Accession Number(s): [id number] cc: Cari Iqbal; Shiela Bliss Report Number: [id number]: Total DLP = 671.00 mGy-cm CLINICAL HISTORY: left sided headache CTA HEAD, bolus contrast injection. 3D reconstructions and MPRs:: Comparison: Right Carotid Siphon: Normal Right Anterior Cerebral Artery: A1 and A2 segments are unremarkable. There is peripheral cortical enhancement. Right Middle Cerebral Artery: M1 and M2 segments are unremarkable. There is peripheral cortical enhancement. Right Posterior Cerebral Artery: P1 and P2 segments are unremarkable. There is peripheral enhancement Left Carotid Siphon: Normal Left Anterior Cerebral Artery: A1 and A2 segments are unremarkable. There is peripheral cortical enhancement. Left Middle Cerebral Artery: M1 and M2 segments are unremarkable. There is peripheral cortical enhancement. Left Posterior Cerebral Artery: P1 and P2 segments are unremarkable. There is peripheral cortical enhancement. Basilar Artery: Normal Venous drainage: Normal Impression: No signs of aneurysm. No stenosis. No large vessel occlusion. No signs of arterial venous malformation. CTA Neck , Bolus contrast injection, 3D reconstructions and MPRs: Comparison: None Findings: Soft tissues of the neck are unremarkable Superior aorta and branch vessels are unremarkable Right carotid: No stenosis (NASCET) Right vertebral: No stenosis Left Carotid: No stenosis(NASCET) Left Vertebral: No stenosis Impression: No stenosis No aneurysm or dissection This document has been electronically signed by: Rey Jasso MD on 11/29/2024 17:23:03 Dictated By: Rey Jasso MD Signed By: <Electronically signed by Rey Jasso MD in OV> 11/29/24 1723 DD/ 22 TD/TT: 11/29/241722 Specimen Accessioner: [facility] External Provider IMG CT PROCEDURES Edited Result - Final * HOLD LT BLUE - POSSIBLE COAG (11/29/2024 3:26 PM EDT) Hold Lt Blue - Possible Coag SEE NOTE [facility] Comment:Specimen will be hel d untested for 4 hours. Call Hematologyif testing is desired. 11/29/2024 3:26 PM EDT 11/29/2024 3:33 PM EDT Generic External Data Provider LAB BLOOD ORDERAB LES Final Result Performing Organization Address [facility] Co de Phone Number [facility] [address] [place] [phone] * High Sensitivity Troponin I (11/29/2024 3:25 PM EDT) Pathologist [facility] TROPONIN I HIGH SENSITIVITY <2.7 <3.5 - 17.0 ng/L [facility] Comment:The Rodriguez high sens itivity Troponin-I results should beused in conjunction with other diagnostic information suchas ECG, clinical observations and information, and patientsymptoms to aid in the diagnosis of [place]. 11/29/2024 3:25 PM EDT 11/29/2024 3:32 PM EDT Generic External Data Provider LAB BLOOD ORDERAB LES Final Result Performing Organization Address [facility] Co de Phone Number [facility] [address] [place] [phone] * TSH with Reflex to Free T4 (11/29/2024 3:25 PM EDT) Pathologist [facility] TSH reflex Free T4 2.04 0.32 - 4.0 uIU/mL [facility] 11/29/2024 3:25 PM EDT 11/29/2024 3:32 PM EDT us Generic External Data Provider LAB BLOOD ORDERAB LES Final Result [facility] [address] [place] [phone] * CBC auto differential (11/29/2024 3:25 PM EDT) White Blood Count 7.6 4.8 - 10.8 X10*3/uL [facility] Red Blood Count 4.67 4.20 - 5.50 X10*6/uL [facility] Hemoglobin 14.0 12.0 - 16.0 g/dl [facility] Hematocrit 40.4 37.0 - 47.0 % [facility] Mean Corpuscular Volume 86.5 80.0 - 98.0 fL [facility] Mean Corpuscular Hemoglobin 30.0 27.0 - 33.0 pg [facility] Mean Corpuscular HGB Conc 34.7 31.0 - 35.0 g/dl [facility] Red Cell Distribution Width 12.7 11.0 - 16.0 % [facility] Platelet Count 215 160 - 400 X10*3/uL [facility] Mean Platelet Volume 10.8 9.4 - 12.3 fL [facility] Neutrophils Percent Auto 61.6 45 - 73 % [facility] Imm Gran Pct Auto 0.4 0.0 - 0.4 % [facility] Lymphocytes Percent Auto 28.6 20 - 40 % [facility] Monocytes Percent Auto 7.1 2 - 11 % [facility] Eosinophils Percent Auto 1.6 0 - 4 % [facility] Basophils Percent Auto 0.7 0 - 2 % [facility] NRBC Pct Auto 0.0 0.0 - 0.2 /100WBC [facility] Neutrophils Absolute Auto 4.7 2.0 - 8.3 x10*3/uL [facility] Imm Gran Abs Auto 0.03 0.00 - 0.03 X10*3/uL [facility] Lymphocytes Absolute Auto 2.2 1.2 - 4.9 X10*3/uL [facility] Monocytes Absolute Auto 0.5 0.1 - 1.2 X10*3/uL [facility] Eosinophils Absolute Auto 0.1 0.0 - 0.4 X10*3/uL [facility] Basophils Absolute Auto 0.1 0.0 - 0.2 X10*3/uL [facility] NRBC Abs Auto 0.000 0.0 - 0.012 X10*3/uL [facility] 11/29/2024 3:25 PM EDT 11/29/2024 3:32 PM EDT us Generic External Data Provider LAB BLOOD ORDERAB LES Final Result Performing Organization Address [facility] Co de Phone Number [facility] [address] [place] [phone] * hCG, Total, Quantitative (11/29/2024 3:25 PM EDT) HCG Quantitative <2 mIU/mL [facility] Comment:Weeks post LMP Appro ximate hCG(Last Menstrual Period) Range (mIU/ml)3 - 4 weeks 9 - 1304 - 5 weeks 75 - 2,6005 - 6 weeks 850 - 20,8006 - 7 weeks 4000 - 100,2007 - 12 weeks 11,500 - 289,93886 - 16 weeks 18,300 - 137,73232 - 29 weeks (2nd trimester) 1,400 - 53,25227 - 41 weeks (3rd trimester) 940 - 60,000The Rodriguez B- hCG assay is used for the early detection ofpregnancy; it cannot be used to diagnose any conditionunrelated to . If a B-hCG level is not supportedby the clinical evidence, results should be confirmed by analternative method (qualitative urine hCG, for example). 11/29/2024 3:25 PM EDT 11/29/2024 3:32 PM EDT us Generic External Data Provider LAB BLOOD ORDERAB LES Final Result [facility] [address] [place] [phone] * Magnesium (11/29/2024 3:25 PM EDT) [facility] Magnesium 1.6 1.6 - 2.6 mg/dL [facility] 11/29/2024 3:25 PM EDT 11/29/2024 3:32 PM EDT Generic External Data Provider LAB BLOOD ORDERAB LES Final Result Performing Organization Address [facility] [place] [facility] Co de Phone Number [facility] [address] [place] [phone] * Hepatic Function Panel (11/29/2024 3:25 PM EDT) [facility] Bilirubin, Total 1.0 0.0 - 1.0 mg/dL [facility] Bilirubin, Direct 0.3 0.0 - 0.5 mg/dL [facility] Aspartate Amino Transferase 21 5 - 31 U/L [facility] Alanine Aminotransferase 27 0 - 31 U/L [facility] Total Protein 7.2 6.5 - 8.0 g/dL [facility] Albumin Level 4.1 3.5 - 5.0 g/dL [facility] Alkaline Phosphatase 58 39 - 117 U/L [facility] 11/29/2024 3:25 PM EDT 11/29/2024 3:32 PM EDT Generic External Data Provider LAB BLOOD ORDERAB LES Final Result Performing Organization Address [facility] Co de Phone Number [facility] [address] [place] [phone] * (ABNORMAL) Basic Metabolic Panel (11/29/2024 3:25 PM EDT) [facility] Sodium 139 135 - 145 mmol/L [facility] Potassium 3.9 3.3 - 5.1 mmol/L [facility] Chloride 107 96 - 108 mmol/L [facility] Carbon Dioxide 21(L) 22 - 29 mmol/L [facility] Anion Gap 15 12 - 20 [facility] Urea Nitrogen (BUN) 15 9 - 16 mg/dL [facility] Creatinine, Serum 0.70 0.5 - 1.4 mg/dL [facility] Creatinine Clr Calc Pharmacy 103.4 [facility] Comment:Provided height and weight: 160.02 cm,57.3 kg.eGFR (calculated from the MDRD study equation) and eCrCl(calculated from the Cockcroft-Gault equation) are based ondifferent parameters and may not yield comparable results.If eCrCl result is absurd, please check patient'sheight/weight. Estimated Glomerular Filt Rate >60 [facility] Comment:Chronic Kidney Disea se: Estimated GFR < 60 mL/min/1.19s7Lcnheo Kidney Disease: Estimated GFR < 15 mL/min/1.73m2 Glucose 92 60 - 115 mg/dL [facility] Calcium 9.1 8.4 - 10.2 mg/dL [facility] 11/29/2024 3:25 PM EDT 11/29/2024 3:32 PM EDT us Generic External Data Provider LAB BLOOD ORDERAB LES Final Result Performing Organization Address City/State/[facility] Co de Phone Number [facility] [address] [place] [phone] * CT Head w/o Contrast (11/29/2024 2:56 PM EDT) Anatomical Region Laterality Modality Head, Neck Computed Tomogra phy 11/29/2024 2:56 PM EDT Narrative 11/29/2024 2:58 PM EDT ? [facility] ?[address] ?[place] [address] ? CT Scan Report ? Signed ? Patient: Yon,Miri ?MR#: [id number] ? : 2000 ?Acct:[id number] ? Age/Sex: 24 / F ?ADM Date: 04/20/25 ? Loc: HO.ED ? Attending Dr: ? Ordering Physician: Aviva Izaguirre CNP ?? Date of Service: 11/29/24 ?? Procedure(s): CT head/brain wo IV con ?? Accession Number(s): [id number] ? cc: Aviva Izaguirre CNP; Cari Iqbal ? Report Number: ?? [id number]: Total DLP = ??644.00 mGy-cm ? CLINICAL HISTORY: acute onset headache L sided, facial numbness ? CT head without contrast ? Comparison: None ? Findings: ?? No intra-axial mass, midline shift, hydrocephalus, or acute hemorrhage. ?? No significant atrophy-like change or white matter disease. ? The visualized paranasal sinuses and mastoid air cells are normal. ?? The orbits are unremarkable. ?? No skull fracture. ? IMPRESSION: ?? 1. No acute intracranial findings. ? This document has been electronically signed by: Raúl Whiting MD on ?? 11/29/2024 14:56:51 ? Dictated By: ?Raúl Whiting MD ? Signed By: ?<Electronically signed by Raúl Whiting MD in OV> ? 11/29/24 145 ? DD/ 55 ? TD/TT: 11/29/241455 ? Specimen Accessioner: ? Procedure Note Jorden Franco - 11/29/[address] [place] [address] [address] Scan Report Signed Patient: Miri Marvin#: [id number] : 2000Acct:[id number] Age/Sex: 24 / FADM Date: 11/29/24 Loc: HO.ED Attending Dr: Ordering Physician: Aviva Izaguirre CNP Date of Service: 11/29/24 Procedure(s): CT head/brain wo IV con Accession Number(s): [id number] cc: Aviva Izaguirre CNP; Cari Iqbal Report Number: [id number]: Total DLP = 644.00 mGy-cm CLINICAL HISTORY: acute onset headache L sided, facial numbness CT head without contrast Comparison: None Findings: No intra-axial mass, midline shift, hydrocephalus, or acute hemorrhage. No significant atrophy-like change or white matter disease. The visualized paranasal sinuses and mastoid air cells are normal. The orbits are unremarkable. No skull fracture. IMPRESSION: 1. No acute intracranial findings. This document has been electronically signed by: Raúl Whiting MD on 11/29/2024 14:56:51 Dictated By: Raúl Whiting MD Signed By: <Electronically signed by Raúl Whiting MD in OV> 11/29/24 1458 DD/ 145 TD/TT: 11/29/24 145 Specimen Accessioner: [facility] External Provider IMG CT PROCEDURES Final Result * (ABNORMAL) Hepatitis C Antibody with Reflex to HCV, RNA, Quantitative, Real- Time PCR (09/01/2024 10:46 AM EST) Pathologist [facility] Hepatitis C Antibody Reactive( A) Nonreactive [facility] Comment:Presumptive evidence of antibodies to HCV. Blood Venous blood specimen / Unknown 09/01/2024 10:46 AM EST 09/01/2024 11:17 AM EST Cari Iqbal MD LAB BLOOD ORDERABLES Final Res ult [facility] [address] [place] [phone] * Chlamydia/N. Gonorrhoeae RNA, TMA, Urogenitial (09/01/2024 10:46 AM EST) CT PCR NOT DETECTED Not Detect. [facility] Comment:A not detected test result [...] psychologicalconsequences. NG PCR NOT DETECTED Not Detect. [facility] Comment:A not detected test result [...] AM EST 09/01/2024 11:18 AM EST Narrative [facility] - 09/01/2024 12:57 PM EST Urine us Cari Iqbal MD LAB MICROBIOLOGY - GENERAL ORD ERABLES Final Result [facility] [address] [place] [phone] * HIV-1/2 Antigen and Antibodies, Fourth Generation, with Reflexes (09/01/2024 10:46 AM EST) HIV AB/AG Nonreactive Nonreactive [facility] Comment:HIV-1 p24 Ag and/or HIV-1/HIV-2 Ab not detected.A test result that is nonreactive does not exclude thepossibility of exposure to or infection with HIV-1 and/orHIV-2. Nonreactive results in this assay for individualswith prior exposure to HIV-1 and/or HIV-2 may be due toantigen and antibody levels that are below the limit ofdetection of this assay.The [place] HIV Ag/Ab Combo assay result andsupplemental assay results should be interpreted inconjunction with the patient's clinical presentation,history and other laboratory results. If the results areinconsistent with clinical evidence, additional testing issuggested to confirm the result. Blood Venous blood specimen / Unknown 09/01/2024 10:46 AM EST 09/01/2024 11:17 AM EST us Cari Iqbal MD LAB BLOOD ORDERABLES Final Res ult [facility] [address] [place] [phone] from Last 3 Months or Most Recently Relevant to Health Maintenance Insurance [facility] Care Teams Campus Administrative Assistant Relationship Specialty Start Date End Date Cari Iqbal MD [address] [place] [phone] PCP - General Family Medicine 09/01/24
[2025-01-10 18:58] LABS: TS Negative Control Passed; TS Panel A 0; TS Panel B 3; TS Positive Control Passed; TSpotTB Negative (Negative)
== END 2025-01-07 13:16 | disposition home or self-care (01) ==
LOC: HO.HHCL 13:15
PROVIDERS: Visit Provider General Practice
DX: Z11.1 Encounter for screening for respiratory tuberculosis (principal)
CPT/HCPCS: 36415; 86481

== ENCOUNTER 2025-02-09 10:32 | Outpatient (REF) | payer OTHER, SELFPAY ==
--- OUTSIDE RECORDS SUMMARY | 2025-02-09 11:42 | XMS_ITS | Clinical Summary ---
Author Organization [facility] [employer] Address [address] 7[address] [place] [address] Care Team Providers Care Line Out Man Name Role Phone Cari Iqbal MD Primary Care Provider [phone] Allergies No known active allergies Medications multivitamin () 27-0.8 MG tablet Take 1 tablet by mouth Once per day. 30 tablet 02/09/2025 Active Active Problems Problem Noted Date Diagnosed Date Dysmenorrhea 08/14/2018 Encounters Date Type Department Care Team Description 02/09/2025 10:00 AM EDT Office Visit [facility] [address] [place] [phone] Pooja Espinoza MD Menorrhagia with irregular cycle (Primary Dx); Encounter for preventive health examination; Screening examination for STD (sexually transmitted disease) 02/09/2025 Travel 02/08/[address] [address] Cari Iqbal MD Chart Prep 02/02/2025 Patient Outreach [address] [address] Cari Iqbal MD Pre-visit Planning (Pre visit planning LVM ) 02/02/2025 Travel 01/06/[address] [address] Cari Iqbal MD Lab Orders 12/11/2024 3:15 PM EDT Office Visit [address] [address] Barrera Kowalski CNP Chronic migraine with aura without status migrainosus, not intractable (Primary Dx) 12/11/2024 Travel 12/09/[address] [address] Shira Knapp MA Chart Prep 12/08/2024 Telephone [facility] [address] [place] [address] Cari Iqbal MD ER Follow-up; Nurse Triage 11/29/2024 Orders Only [facility] External Provider, [facility] from Last 3 Months Immunizations Immunization Administration [...] 08/30/2005,05/11/2002 Meningococcal MCV4P [id number] 07/10/2017,09/25/19 13 Novel [id number], all formulations 05/26/2009 Pneumococcal Conjugate PCV 7 [...] Access Q2 Not on file 09/01/2024 Comments No Sex and Gender Information Value Date Recorded Sex Assigned at Female 09/01/2024 10:11 AM EST Legal Sex Female 4:13 PM EDT Gender Identity Female 09/01/2024 10:11 AM EST Sexual Orientation Choose not to disclose 2024 3:07 PM EST Last Filed Vital Signs Vital Sign Reading Time Taken Comments Blood Pressure 116/69 02/09/2025 9:44 AM EDT Pulse 89 02/09/2025 9:44 AM EDT Temperature 36.5 C (97.7 F) 02/09/2025 9:44 AM EDT Respiratory Rate 16 02/09/2025 9:44 AM EDT Oxygen Saturation 95% 02/09/2025 9:44 AM EDT Inhaled Oxygen Concentration - - Weight 58.6 kg (129 lb 3.2 oz) 02/09/2025 9:44 A M EDT Height 160 cm (5' 3 ) 02/09/2025 9:44 AM EDT Body Mass Index 22.89 02/09/2025 9:44 AM EDT Plan of Treatment Health Maintenance Due Date Last Done Comments Family Planning (PISQ) 2016 Meningococcal B Vaccine (1 of 2 - Standard) 2017 Pap Smear 2022 DTaP/Tdap/Td Vaccines (7 - Td or Tdap) 09/25/2022 09/25/2012, 08/30/2005, 11/12/2002, Additional history exists COVID-19 Vaccine ( season) 2024 10/23/2021, 03/29/2021, 03/08/2021 Influenza Vaccine (#1) 2025 9, 07/10/2017, 12/14/2013, Additional history exists Alcohol/Substance Use Screening 09/01/2025 09/01/2024 Chlamydia and Gonorrhea Screening 09/01/2025 09/01/2024, 08/14/2018 SDOH Screening 09/01/2025 09/01/2024 Depression Screening 12/11/2025 12/11/2024, 12/12/19 25 Disability Screening 02/02/2026 02/02/2025 Tobacco Screening 02/09/2026 02/09/2025 Zoster Vaccines (1 of 2) 2051 RSV Patients and Patients Aged 60 years or older (1 - 1-dose 75+ series) 2076 Pneumococcal Vaccine: Pediatrics (0 to 5 Years) and At-Risk Patients (6 to 49) Years Aged Out 2001, 2001, 2001 No longer eligible based on patient's age to complete this topic Hepatitis B Vaccines Completed 02/16/2002, 2001, 2001 HIB Vaccines Completed 08/13/2002, 01/2002, 2001, Additional history exists IPV Vaccines Completed 08/30/2005, 0 01/2002, 2001, Additional history exists HPV Vaccines Completed 12/14/2013, 2 12/2012, 09/25/2012 Hepatitis A Vaccines Completed 01/13/2015, 12/15/19 [...] Procedure Name Priority Date/Time Associated Diagnosis Comments T-SPOT(R).TB Routine 01/07/2025 1:18 PM EDT Screening examination for pulmonary tuberculosis CTA HEAD NECK W AND WO CONTRAST [...] Recently Relevant to Health Maintenance Results * T-SPOT??.TB (01/07/2025 1:18 PM EDT) T Spot TB Negative Negative [facility] Comment:A negative test resu lt does not exclude the possibilityof exposure to or infection with Mycobacteriumtuberculosis (M. tuberculosis). Patients with recentexposure to TB infected individuals exhibiting anegative T-SPOT.TB result should be considered forretesting within 6 weeks or if other relevant clinicalsymptoms indicate. Results from T-SPOT.TB testing mustbe used in conjunction with each individual'sepidemiological history, current medical status,and results of other diagnostic evaluations.The T-SPOT.TB test is qualitative and results arereported as positive, borderline, or negative, giventhat the test controls perform as expected. In linewith the Centers for Disease Control and Prevention's2010 recommendation to report quantitative measurementsalongside the qualitative result, the laboratoryprovides spot counts for informational purposes only.The T-SPOT.TB test should not be interpreted as aquantitative test. TS PANEL A 0 [facility] TS PANEL B 3 [facility] Negative Control Passed [facility] Positive Control Passed [facility] Comment:For additional infor matrhett, please refer [email or web address]/faq/JGK797(This link is being provided for informational/educational purposes only.)THIS TEST WAS PERFORMED AT:[employer] [id number] [place] [id number] BRYANT MD,PHD 01/07/2025 1:18 PM EDT 01/07/2025 4:02 PM EDT us Cari Iqbal MD LAB BLOOD ORDERABLES Final Res ult [facility] [address] [place] [phone] * CTA Head Neck w/ and w/o Contrast (11/29/2024 5:23 PM EDT) Anatomical Region Laterality Modality Head, Neck Computed Tomogra phy 11/29/2024 5:23 PM EDT Narrative 11/29/2024 5:24 PM EDT [address] [address] [address] Scan Report Signed Patient: Miri Marvin MR#: [id number] : 2000 Acct:[id number] Age/Sex: 24 / F ADM Date: 11/29/24 Loc: .ED Attending Dr: Ordering Physician: Shiela Bliss Date of Service: 11/29/24 Procedure(s): CT angio head neck Accession Number(s): [id number] cc: Cari Iqbal; Shiela Bliss Report Number: [id number]: Total DLP = 671.00 mGy-cm CLINICAL HISTORY: [...] by Rey Jasso MD in OV> 11/29/24 172 DD/ 172 TD/TT: 11/29/241722 Spindle Repairer: Procedure Note Donotuseinterpreter, Image - 11/29/[address] [address] [address] Scan Report Signed Patient: Lori Marvin#: [id number] : 2000Acct:[id number] Age/Sex: 24 FADM Date: 11/29/24 Loc: .ED Attending Dr: Ordering Physician: Shiela Bliss Date of Service: 11/29/24 Procedure(s): CT angio head neck Accession Number(s): [id number] cc: Cari Iqbal; Shiela Bliss Report Number: [id number]: Total DLP = 671.00 mGy-cm CLINICAL HISTORY: [...] by Rey Jasso MD in OV> 11/29/24 172 DD/ 172 TD/TT: 11/29/24 172 Spindle Repairer: [facility] External Provider IMG CT PROCEDURES Edited Result - Final * HOLD LT BLUE - POSSIBLE COAG (11/29/2024 3:26 PM EDT) Hold Lt Blue - Possible Coag SEE NOTE [facility] Comment:Specimen will be hel d untested for 4 hours. Call Hematologyif testing is desired. 11/29/2024 3:26 PM EDT 11/29/2024 3:33 PM EDT Generic External Data Provider LAB BLOOD ORDERAB LES Final Result Performing Organization Address City/[facility]/ZIP Co de Phone Number [facility] [address] [place] [phone] * High Sensitivity Troponin I (11/29/2024 3:25 PM EDT) TROPONIN I HIGH SENSITIVITY <2.7 <3.5 - 17.0 ng/L [facility] Comment:The Rodriguez high sens itivity Troponin-I results should beused in conjunction with other diagnostic information suchas ECG, clinical observations and information, and patientsymptoms to aid in the diagnosis of [place]. 11/29/2024 3:25 PM EDT 11/29/2024 3:32 PM EDT Generic External Data Provider LAB BLOOD ORDERAB LES Final Result Performing Organization Address City/[facility]/ZIP Co de Phone Number [facility] [address] [place] [phone] * TSH with Reflex to Free T4 (11/29/2024 3:25 PM EDT) TSH reflex Free T4 2.04 0.32 - 4.0 uIU/mL [facility] 11/29/2024 3:25 PM EDT 11/29/2024 3:32 PM EDT us Generic External Data Provider LAB BLOOD ORDERAB LES Final Result [facility] [address] [place] [address] [phone] * CBC auto differential (11/29/2024 3:25 PM EDT) White Blood Count 7.6 4.8 - 10.8 X10*3/uL [facility] Red Blood Count 4.67 4.20 - 5.50 X10*6/uL [facility] Hemoglobin 14.0 12.0 - 16.0 g/dl [facility] Hematocrit 40.4 37.0 - 47.0 % [facility] Mean Corpuscular Volume 86.5 80.0 - 98.0 fL [facility] Mean Corpuscular Hemoglobin 30.0 27.0 - 33.0 pg [facility] Mean Corpuscular HGB Conc 34.7 31.0 - 35.0 g/dl [facility] Red Cell Distribution Width 12.7 11.0 - 16.0 % [facility] Platelet Count 215 160 - 400 X10*3/uL [facility] Mean Platelet Volume 10.8 9.4 - 12.3 fL [facility] Neutrophils Percent Auto 61.6 45 - 73 % [facility] Imm Gran Pct Auto 0.4 0.0 - 0.4 % [facility] Lymphocytes Percent Auto 28.6 20 - 40 % [facility] Monocytes Percent Auto 7.1 2 - 11 % [facility] Eosinophils Percent Auto 1.6 0 - 4 % [facility] Basophils Percent Auto 0.7 0 - 2 % [facility] NRBC Pct Auto 0.0 0.0 - 0.2 /100WBC [facility] Neutrophils Absolute Auto 4.7 2.0 - 8.3 x10*3/uL [facility] Imm Gran Abs Auto 0.03 0.00 - 0.03 X10*3/uL [facility] Lymphocytes Absolute Auto 2.2 1.2 - 4.9 X10*3/uL [facility] Monocytes Absolute Auto 0.5 0.1 - 1.2 X10*3/uL [facility] Eosinophils Absolute Auto 0.1 0.0 - 0.4 X10*3/uL [facility] Basophils Absolute Auto 0.1 0.0 - 0.2 X10*3/uL [facility] NRBC Abs Auto 0.000 0.0 - 0.012 X10*3/uL [facility] 11/29/2024 3:25 PM EDT 11/29/2024 3:32 PM EDT us Generic External Data Provider LAB BLOOD ORDERAB LES Final Result [facility] [address] [place] [phone] * hCG, Total, Quantitative (11/29/2024 3:25 PM EDT) HCG Quantitative <2 mIU/mL [facility] Comment:Weeks post LMP Appro ximate hCG(Last Menstrual Period) Range (mIU/ml)3 - 4 weeks 9 - 1304 - 5 weeks 75 - 2,6005 - 6 weeks 850 - 20,8006 - 7 weeks 4000 - 100,2007 - 12 weeks 11,500 - 289,41314 - 16 weeks 18,300 - 137,86828 - 29 weeks (2nd trimester) 1,400 - 53,84079 - 41 weeks (3rd trimester) 940 - [...] ORDERAB LES Final Result Performing Organization Address [facility] Co nh Phone Number [facility] [address] [place] [phone] * Magnesium (11/29/2024 3:25 PM EDT) Magnesium 1.6 1.6 - 2.6 mg/dL [facility] 11/29/2024 3:25 PM EDT 11/29/2024 3:32 PM EDT Generic External Data Provider LAB BLOOD ORDERAB LES Final Result Performing Organization Address [facility] Number [facility] [address] [place] [phone] * Hepatic Function Panel (11/29/2024 3:25 PM EDT) Bilirubin, Total 1.0 0.0 - 1.0 mg/dL [facility] Bilirubin, Direct 0.3 0.0 - 0.5 mg/dL [facility] Aspartate Amino Transferase 21 5 - 31 U/L [facility] Alanine Aminotransferase 27 0 - 31 U/L [facility] Total Protein 7.2 6.5 - 8.0 g/dL [facility] Albumin Level 4.1 3.5 - 5.0 g/dL [facility] Alkaline Phosphatase 58 39 - 117 U/L [facility] 11/29/2024 3:25 PM EDT 11/29/2024 3:32 PM EDT us Generic External Data Provider LAB BLOOD ORDERAB LES Final Result Performing Organization Address [facility]/ZIP Co de Phone Number [facility] [address] [place] [phone] * (ABNORMAL) Basic Metabolic Panel (11/29/2024 3:25 PM EDT) Sodium 139 135 - 145 mmol/L [facility] Potassium 3.9 3.3 - 5.1 mmol/L [facility] Chloride 107 96 - 108 mmol/L [facility] Carbon Dioxide 21(L) 22 - 29 mmol/L [facility] Anion Gap 15 12 - 20 [facility] Urea Nitrogen (BUN) 15 9 - 16 mg/dL [facility] Creatinine, Serum 0.70 0.5 - 1.4 mg/dL [facility] Creatinine Clr Calc Pharmacy 103.4 [facility] Comment:Provided height and weight: 160.02 cm,57.3 kg.eGFR (calculated from the MDRD study equation) and eCrCl(calculated from the Cockcroft-Gault equation) are based ondifferent parameters and may not yield comparable results.If eCrCl result is absurd, please check patient'sheight/weight. Estimated Glomerular Filt Rate >60 [facility] Comment:Chronic Kidney Disea se: Estimated GFR < 60 mL/min/1.35o2Qxbbfk Kidney Disease: Estimated GFR < 15 mL/min/1.73m2 Glucose 92 60 - 115 mg/dL [facility] Calcium 9.1 8.4 - 10.2 mg/dL [facility] 11/29/2024 3:25 PM EDT 11/29/2024 3:32 PM EDT us Generic External Data Provider LAB BLOOD ORDERAB LES Final Result [facility] [address] [place] [phone] [phone] * CT Head w/o Contrast (11/29/2024 2:56 PM EDT) Anatomical Region Laterality Modality Head, Neck Computed Tomogra phy 11/29/2024 2:56 PM EDT Narrative 11/29/2024 2:58 PM EDT [address] [address] [address] Scan Report Signed Patient: Miri Marvin MR#: [id number] : 2000 Acct:[id number] Age/Sex: 24 / F ADM Date: 11/29/24 Loc: HO.ED Attending Dr: Ordering Physician: Aviva Izaguirre CNP Date of Service: 11/29/24 Procedure(s): CT head/brain wo IV con Accession Number(s): [id number] cc: Aviva Izaguirre CNP; Cari Iqbal Report Number: [id number]: Total DLP = 644.00 mGy-cm CLINICAL HISTORY: [...] Whiting MD in OV> 11/29/24 1458 DD/ 1456 TD/TT: 11/29/24 1456 Spindle Repairer: Procedure Note Donotuseinterpreter, Image - 11/29/[address] [address] [address] Scan Report Signed Patient: Miri MarvinMR#: [id number] : 2000Acct:[id number] Age/Sex: 24 / FADM Date: 11/29/24 Loc: HO.ED Attending Dr: Ordering Physician: Aviva Izaguirre CNP Date of Service: 11/29/24 Procedure(s): CT head/brain wo IV con Accession Number(s): [id number] cc: Aviva Izaguirre CNP; Cari Iqbal Report Number: [id number]: Total DLP = 644.00 mGy-cm CLINICAL HISTORY: [...] Whiting MD in OV> 11/29/24 1458 DD/ 55 TD/TT: 11/29/241455 Spindle Repairer: [facility] External Provider IMG CT PROCEDURES Final Result * (ABNORMAL) Hepatitis C Antibody with Reflex to HCV, RNA, Quantitative, Real- Time PCR (09/01/2024 10:46 AM EST) [facility] Hepatitis C Antibody Reactive( A) Nonreactive [facility] Comment:Presumptive evidence of antibodies to HCV. Blood Venous blood specimen / Unknown 09/01/2024 10:46 AM EST 09/01/2024 11:17 AM EST Cari Iqbal MD LAB BLOOD ORDERABLES Final Res ult [facility] [address] [place] [phone] * Chlamydia/N. Gonorrhoeae RNA, TMA, Urogenitial (09/01/2024 10:46 AM EST) Pathologist [facility] CT PCR NOT DETECTED Not Detect. [facility] Comment:A not detected test result does [...] psychologicalconsequences. NG PCR NOT DETECTED Not Detect. [facility] Comment:A not detected test result does [...] AM EST 09/01/2024 11:18 AM EST Narrative [facility] - 09/01/2024 12:57 PM EST Urine us Cari Iqbal MD LAB MICROBIOLOGY - GENERAL ORD ERABLES Final Result [facility] [address] [place] [phone] * HIV-1/2 Antigen and Antibodies, Fourth Generation, with Reflexes (09/01/2024 10:46 AM EST) HIV AB/AG Nonreactive Nonreactive [facility] Comment:HIV-1 p24 Ag and/or HIV-1/HIV-2 Ab not detected.A test result that is nonreactive does not exclude thepossibility of exposure to or infection with HIV-1 and/orHIV-2. Nonreactive results in this assay for individualswith prior exposure to HIV-1 and/or HIV-2 may be due toantigen and antibody levels that are below the limit ofdetection of this assay.The [employer] HIV Ag/Ab Combo assay result andsupplemental assay results should be interpreted inconjunction with the patient's clinical presentation,history and other laboratory results. If the results areinconsistent with clinical evidence, additional testing issuggested to confirm the result. Blood Venous blood specimen / Unknown 09/01/2024 10:46 AM EST 09/01/2024 11:17 AM EST us Cari Iqbal MD LAB BLOOD ORDERABLES Final Res ult [facility] [address] [place] [phone] from Last 3 Months or Most Recently Relevant to Health Maintenance Insurance [facility] Care Teams Line Out Man Relationship Specialty Start Date End Date Cari Iqbal MD [address] [place] [address] PCP - General Family Medicine 09/01/24
[2025-02-09 14:16] LABS: Syphilis Screen Nonreactive (Nonreactive)
[2025-02-09 14:20] LABS: HBS Num1 0.06 mIU/mL (0-7.99); HBc Num1 0.10 S/CO (0.00-0.79); HBsAGNum1 0.51 S/CO (0.00-0.99); HIV Num 1 0.11 S/CO (0.00-0.99); Hepatitis A Antibody IgM 0.25 Index (0-0.79); Hepatitis B Surface Antigen Negative (Negative); ~HepC Num1 1.06 S/CO (0.00-0.79); ~Hepatitis A Antibody IgM Nonreactive (Nonreactive); ~Hepatitis B Surface Antibody NONREACTIVE (Nonreactive); ~Hepatitis C Antibody Reactive (Nonreactive)
== END 2025-02-09 10:33 | disposition home or self-care (01) ==
LOC: HO.HHCL 10:32
PROVIDERS: PCP General Practice; Visit Provider Internal Medicine
DX: N92.1 Excessive and frequent menstruation with irregular cycle (principal); Z11.3 Encounter for screening for infections with a predominantly sexual mode of transmission
CPT/HCPCS: 36415; 84702; 86704; 86706; 86709; 86780; 86803; 87340; 87389